=== PATIENT | male | born 1970 | race Caucasian/White ===

== ENCOUNTER → 2020-09-22 | Outpatient (CLI) | payer BC, OTHER ==
--- NOTE | 2020-09-22 21:00 | REPVR ---
PROCEDURE INFORMATION: Exam: MR Lumbar Spine Without Contrast. Exam date and time: 09/22/2020 7:28 PM Age: 50 years old Clinical indication: Low back pain; Additional info: Lbp TECHNIQUE: Imaging protocol: Multiplanar magnetic resonance images of the lumbar spine without intravenous contrast. COMPARISON: No relevant prior studies available. FINDINGS: Vertebrae: Tiny hemangioma within the L3 vertebral body. Normal vertebral body morphology. No fracture or subluxation. Spinal cord: Normal signal. No cord compression. The conus terminates at the level of the superior endplate of L2. L1-L2: Normal disc. Bilateral facet hypertrophy. No spinal stenosis. L2-L3: Normal disc. Bilateral facet hypertrophy. No spinal stenosis. L3-L4: Right-sided foraminal/far lateral disc protrusion. Correlate with possible right L3 radiculopathy. Bilateral facet hypertrophy and ligamentum flavum thickening. Mild spinal stenosis. L4-L5: Posterior broad-based disc bulge. Bilateral foraminal focal disc bulges, worse on the right with right foraminal annular fissure (sagittal STIR images 10, 11 and 12). Bilateral facet hypertrophy and ligamentum flavum thickening. Mild spinal stenosis. No focal disc protrusion or nerve root impingement. L5-S1: Posterior central focal disc bulge with annular fissure. No nerve root impingement. Mild bilateral facet hypertrophy. Soft tissues: Unremarkable. IMPRESSION: Degenerative spondylosis of the lumbar spine as described above. Electronically signed by: Long Ray On 09/22/2020 20:59:56 PM
== END ==
LOC: M RAD 17:29
PROVIDERS: ATTEND Physician Assistant
DX: M51.26 Other intervertebral disc displacement, lumbar region (principal); M47.816 Spondylosis without myelopathy or radiculopathy, lumbar region

== ENCOUNTER → 2020-12-18 | Outpatient (CLI) | payer BC, OTHER ==
--- NOTE | 2020-12-20 00:24 | ECWPNPC ---
PATIENT NAME: NELLI NICOLAS : 1970 GENDER: MALE VISIT DATE: 12/18/2020 DISCHARGE DATE: 12/18/20 1032 VISIT LOCKED DATE TIME: PHYSICIAN: PRISCA RAI RESOURCE: PRISCA RAI REASON FOR APPOINTMENT 1. BACK PAIN HISTORY OF PRESENT ILLNESS DEPRESSION SCREENING: PHQ-2 (2015 EDITION) LITTLE INTEREST OR PLEASURE IN DOING THINGS?NOT AT ALL FEELING DOWN, DEPRESSED, OR HOPELESS?NOT AT ALL TOTAL SCORE0 GENERAL: 50-YEAR-OLD GENTLEMAN REFERRED BY [facility] FOR EVALUATION OF CHRONIC LOW BACK PAIN. STATES PAIN BEGAN ACTUALLY 5 YEARS AGO WITHOUT PRECIPITATING EVENT. SAW PAIN CLINIC IN [place] AND HAD INJECTIONS WITH IMPROVEMENT SEVERAL YEARS AGO. PAIN BEGAN TO INCREASE OVER THE PAST YEAR. CONTINUES TO WORK ATTENDANCE SECRETARY. PAIN IS LOCATED ACROSS LOW BACK RIGHT GREATER THAN LEFT. PAIN IS AGGRAVATED WITH PROLONGED STANDING OR SITTING. REVIEWED MRI OF THE LS-SPINE AND DISCUSSED TREATMENT OPTIONS. RECENTLY ATTENDED PHYSICAL THERAPY WITH SOME IMPROVEMENT. DENIES BOWEL OR BLADDER INCONTINENCE. NO RECENT ILLNESS OR SUDDEN WEIGHT LOSS. -. FALL RISK SCREENING: SCREENING :NO FALLS REPORTED IN THE LAST YEAR PAIN SCREENING: PATIENT HAS A COMPLAINT OF ACUTE OR CHRONIC PAIN :YES LOCATION OF PAIN:LOW BACK INTENSITY OF PAIN (SCALE OF 1 TO 10):5 WHAT DOES YOUR PAIN FEEL LIKE:ACHING DURATION:PERIODIC PAIN IS INCREASED BY:ACTIVITIES PAIN IS DECREASED BY:SITTING NURSING NOTE: -. PAIN CENTER INTAKE QUESTIONS: DO YOU HAVE A HISTORY OF MRSA? :NO DO YOU TAKE A BLOOD THINNERS? :NO DO YOU HAVE ANY BLEEDING DISORDERS? :NO ANY NEW NUMBNESS OR WEAKNESS IN YOUR LEGS OR ARMS? :NO ANY PACEMAKER,DEFIBRILLATOR, OR DORSAL COLUMN STIMULATOR? :NO DO YOU HAVE ANY RASHES OR OPEN SORES? :NO ARE YOU ALLERGIC TO IV DYE? :NO ARE YOU DIABETIC? :NO ANY NEW PROBLEMS WITH YOUR MEDICATIONS? :NO HAVE YOU RECEIVED A VACCINE IN THE PAST 30 DAYS? :NO DO YOU PLAN TO RECEIVE A VACCINE IN THE NEXT 21 DAYS? :NO DO YOU NEED ANY PRESCRIPTION? :NO DO YOU TAKE ANY IMMUNOSUPPRESSIVE MEDICATIONS? :NO IS THERE A CHANCE YOU COULD BE ? :NO ARE YOU BREAST FEEDING? :NO CURRENT MEDICATIONS TAKING DULOXETINE HCL 60 MG CAPSULE DELAYED RELEASE PARTICLES 1 CAPSULE ORALLY ONCE A DAY TAKING ALLOPURINOL 300 MG TABLET 1 TABLET ORALLY ONCE A DAY TAKING MULTI FOR HIM - TABLET DIRECTED ORALLY DAILY TAKING LOSARTAN POTASSIUM 25 MG TABLET 1 TABLET ORALLY ONCE A DAY TAKING AMLODIPINE BESY-BENAZEPRIL HCL 5-10 MG CAPSULE DIRECTED ORALLY NOT-TAKING EUFLEXXA 20 MG/2ML SOLUTION PREFILLED SYRINGE 2 ML INTRA-ARTICULAR NOT-TAKING NORVASC 2.5MG TABLET 1 TAB ORALLY DAILY MEDICATION LIST REVIEWED AND RECONCILED WITH THE PATIENT PAST MEDICAL HISTORY ESSENTIAL HYPERTENSION CHRONIC BACK PAIN ALLERGIES N.K.D.A. SURGICAL HISTORY SINUS SURGERY FAMILY HISTORY FATHER: UNKNOWN MOTHER: UNKNOWN SOCIAL HISTORY GENERAL: TOBACCO USE ARE YOU A:NONSMOKER LATEX QUESTIONNAIRE LATEX ALLERGY : HAVE YOU EVER DEVELOPED ANY TYPE OF REACTION AFTER HANDLING LATEX PRODUCTS SUCH RUBBER GLOVES, CONDOMS, DIAPHRAGMS, BALLOONS, SOCKS, OR UNDERWEAR?NO LATEX ALLERGY : HAVE YOU EVER DEVELOPED ANY TYPE OF REACTION DURING OR AFTER DENTAL APPOINTMENT, VAGINAL/RECTAL EXAMINATION, SURGICAL PROCEDURE, OR ANY OTHER EXPOSURE?NO LATEX RISK : HAVE YOU EVER HAD ANY DIFFICULTY BREATHING OR HIVES AFTER EATING OR HANDLING ANY FRUITS, OR VEGETABLES; SUCH KIWI, BANANAS, STONE FRUITS, OR CHESTNUTSNO LATEX RISK : DO YOU HAVE A PREVIOUS PERSONAL HISTORY OF MORE THAN NINE SURGERIES, SPINA BIFIDA, OR REPEATED CATHERIZATIONS? NO LATEX RISK : ARE YOU FREQUENTLY EXPOSED TO LATEX PRODUCTS IN YOUR OCCUPATION?NO DATE ASKED : 12/18/2020 ALCOHOL SCREENING DID YOU HAVE A DRINK CONTAINING ALCOHOL IN THE PAST YEAR?YES POINTS0 INTERPRETATIONNEGATIVE RECREATIONAL DRUG USE DRUG USE?NO HOLINESS [id number] CHRISTIAN LANGUAGE LANGUAGES SPOKEN:BULGARIAN LEARNING BARRIERS / SPECIAL NEEDS BARRIERS TO LEARNING?NO HEARING IMPAIRED?NO VISION IMPAIRED?YES :CORRECTIVE LENSES COGNITIVELY IMPAIRED?NO READINESS TO LEARN?NO LEARNING PREFERENCES?YES :BOOKLETS, HANDOUTS, DEMONSTRATION/VERBAL INSTRUCTION LEARNING CAPABILITIES PRESENT?YES EMOTIONAL BARRIERS?NO SPECIAL DEVICES?NO FLARE WORKER NEEDED?NO HOSPITALIZATION/MAJOR DIAGNOSTIC PROCEDURE NO HOSPITALIZATION HISTORY. REVIEW OF SYSTEMS CONSTITUTIONAL: ANY RECENT FEVER NO . CHILLS NO . WEIGHT CHANGE OF UNKNOWN REASONS NO . GASTROENTEROLOGY: NEW UNEXPLAINABLE CHANGES IN BOWEL CONTROL NO . CONSTIPATION NO . GENITOURINARY: ANY NEW CHANGE IN BLADDER CONTROL? NO . NEUROLOGY: NEW ONSET DIZZINESS OR NEUROLOGICAL CHANGES NOT MENTIONED NO . NEW NUMBNESS OR PAIN PATTERNS NOT MENTIONED AND PERTINENT TO TODAY'S VISIT NO . CARDIOLOGY: NEW CHEST PRESSURE NO . NEW CHEST PAIN NO . RESPIRATORY: UNEXPLAINABLE COUGH NO . NEW SHORTNESS OF BREATH NO . VITAL SIGNS WT 395 LBS, HT 5'10, BMI 77.13 INDEX, BP 167/83 MM HG, HR 18 /MIN, TEMP 95.7 F, OXYGEN SAT % 95%, SAFE IN ENV? (Y/N) YEST.RENÉ SOARES. EXAMINATION GENERAL EXAMINATION: GENERALMORBIDLY OBESE . PSYCHAPPROPRIATE MOOD AND AFFECT . FACE:UNREMARKABLE. NECK:NO LYMPHADENOPATHY, SUPPLE. LUNGS:CLEAR TO AUSCULTATION BILATERALLY, NO WHEEZES, RHONCHI, RALES. HEART:NO MURMURS, REGULAR RATE AND RHYTHM. ABDOMEN:OBESE , PROTUBERANT . MUSCULOSKELETAL:NORMAL RANGE OF MOTION MUSCLE STRENGTH TESTING 5/5 BILATERAL TRIGGER POINTS: ELICITED WITH PALPATION OVER LUMBAR PARAVERTEBRAL MUSCLES R>L. PAIN INCREASES IN THIS AREA WITH RANGE OF JOINT MOTION OF THE SPINE.. LUMBAR:SPECIFIC POINT TENDERNESS NOTED OVER LUMBAR FACETS L3-4, L4-5 WITH FACET LOADING . NEUROLOGIC EXAM:NORMAL SENSATION TO LIGHT TOUCH LOWER EXTREMITIES BILATERALLY . DIAGNOSTIC TESTS REVIEWEDMRI L/S SPINE 08/2020 . ASSESSMENTS LUMBAR FACET ARTHROPATHY - M47.816 (PRIMARY) TREATMENT LUMBAR FACET ARTHROPATHY NOTES: BILATERAL LUMBAR THERAPEUTIC FACET BLOCK L3-4, L4-5. PROCEDURE CODES FA211 ESTABILISHED PATIENT [facility] FACILITY CHARGE DISPOSITION & COMMUNICATION FOLLOW UP POST PROCEDURE (REASON: BILATERAL LUMBAR THERAPEUTIC FACET BLOCK L3-4, L4-5) ELECTRONICALLY SIGNED BY LORIE CHAIDEZ ON 12/19/2020 AT 09:19 AM EST DISCLAIMER : THIS IS A VISIT SUMMARY EXTRACTED FROM THE [employer] CHART. IT IS NOT A COPY OF THE [employer] PROGRESS NOTE. JILL
== END ==
LOC: M PAIN 10:00
PROVIDERS: ATTEND Nurse Practitioner Family
DX: M47.816 Spondylosis without myelopathy or radiculopathy, lumbar region (principal); G89.29 Other chronic pain; E66.01 Morbid (severe) obesity due to excess calories; Z68.45 Body mass index [BMI] 70 or greater, adult; Z79.899 Other long term (current) drug therapy

== ENCOUNTER → 2020-12-27 | Outpatient (CLI) | payer BC, OTHER | LOC: M LABSMTC 09:32 | PROVIDERS: ATTEND Anesthesiology | DX: Z20.822 Contact with and (suspected) exposure to COVID-19 (principal) ==

== ENCOUNTER → 2021-01-01 | Outpatient (CLI) | payer BC, OTHER ==
[~2021-01-01] MED LIST: BUPIVACAINE HCL 0.25% 30ML VIAL As Ordered ONE; ISOVUE-M 300 61% 15ML VIAL As Ordered ONE; LIDOCAINE 1% SDV 30ML VIAL As Ordered ONE; NORCO, ANEXSIA 5/325MG TABLET (HYDROcodone/ACETAMINOPHEN) As Ordered ONE; TRIAMCINOLONE ACETONIDE SUSP 40 MG/ML VIAL (J3301) As Ordered ONE; diazePAM 2 MG TAB As Ordered ONE
--- NOTE | 2021-01-01 16:35 | REP ---
INDICATION: BIALTERAL LUMBAR THERAPEUTIC FACET BLOCK. COMPARISON: None. TECHNIQUE: Six views. 36.2 seconds of fluoroscopy time is reported. FINDINGS: A sequence of 6 last image hold fluoroscopically obtained spot radiograph(s) of the lumbar spine document(s) needle position(s) and contrast injection associated with injection procedure. IMPRESSION: Procedural imaging. <Electronically signed by Jason Koenig > 01/01/21 1387
--- NOTE | 2021-01-03 01:16 | ECWPNPC ---
PATIENT NAME: NELLI NICOLAS : 1970 GENDER: MALE VISIT DATE: 01/01/2021 DISCHARGE DATE: 01/01/21 1601 VISIT LOCKED DATE TIME: PHYSICIAN: KRISTY DWYER MD RESOURCE: KRISTY DWYER MD REASON FOR APPOINTMENT 1. BILATERAL THERAPEUTIC LUMBAR FACET BLOCK L3-L4, L4-L5 HISTORY OF PRESENT ILLNESS GENERAL: -. FALL RISK SCREENING: SCREENING :NO FALLS REPORTED IN THE LAST YEAR PAIN SCREENING: PATIENT HAS A COMPLAINT OF ACUTE OR CHRONIC PAIN :YES LOCATION OF PAIN:LOW BACK INTENSITY OF PAIN (SCALE OF 1 TO 10):7.5 WHAT DOES YOUR PAIN FEEL LIKE:ACHING, INTERMITTENT, SHARP, SORE DURATION:INTERMITTENT INTERMMITENT WITH ACTIVITIES PAIN IS INCREASED BY:ACTIVITIES PAIN IS DECREASED BY:USE OF PAIN MEDICATIONS NURSING NOTE: -. PAIN CENTER INTAKE QUESTIONS: DO YOU HAVE A HISTORY OF MRSA? :NO DO YOU TAKE A BLOOD THINNERS? :NO DO YOU HAVE ANY BLEEDING DISORDERS? :NO ANY NEW NUMBNESS OR WEAKNESS IN YOUR LEGS OR ARMS? :NO ANY PACEMAKER,DEFIBRILLATOR, OR DORSAL COLUMN STIMULATOR? :NO DO YOU HAVE ANY RASHES OR OPEN SORES? :NO ARE YOU ALLERGIC TO IV DYE? :NO ARE YOU DIABETIC? :NO ANY NEW PROBLEMS WITH YOUR MEDICATIONS? :NO HAVE YOU RECEIVED A VACCINE IN THE PAST 30 DAYS? :NO DO YOU PLAN TO RECEIVE A VACCINE IN THE NEXT 21 DAYS? :NO DO YOU TAKE ANY IMMUNOSUPPRESSIVE MEDICATIONS? :NO ANY HISTORY OF SEIZURES? :NO ANY HISTORY OF CARDIAC ISSUES OR EVENTS? :NO DO YOU HAVE SLEEP APNEA? :YES DO YOU WEAR A CPAP?YES ANY RECENT HEAD INJURY? :NO DO YOU HAVE ANY NEW INFECTIONS? :NO IS THERE A CHANCE YOU COULD BE ? :NO ARE YOU BREAST FEEDING? :NO WHEN DID YOU LAST EAT? : -12/31/2020 1700 WHEN DID YOU LAST DRINK? : -01/01/2021 @ 1000 WHAT DID YOU LAST DRINK? : -SIPS OF WATER WITH MEDICATION NAME OF PERSON DRIVING YOU HOME? : -GUILLERMO DO YOU HAVE ANY OTHER QUESTIONS OR CONCERNS? : -DENIES CURRENT MEDICATIONS TAKING DULOXETINE HCL 60 MG CAPSULE DELAYED RELEASE PARTICLES 1 CAPSULE ORALLY ONCE A DAY TAKING ALLOPURINOL 300 MG TABLET 1 TABLET ORALLY ONCE A DAY TAKING MULTI FOR HIM - TABLET DIRECTED ORALLY DAILY TAKING LOSARTAN POTASSIUM 25 MG TABLET 1 TABLET ORALLY ONCE A DAY, NOTES: 01/01/21 @ 1100 TAKING AMLODIPINE BESY-BENAZEPRIL HCL 5-10 MG CAPSULE DIRECTED ORALLY DAILY NOT-TAKING EUFLEXXA 20 MG/2ML SOLUTION PREFILLED SYRINGE 2 ML INTRA-ARTICULAR NOT-TAKING NORVASC 2.5MG TABLET 1 TAB ORALLY DAILY MEDICATION LIST REVIEWED AND RECONCILED WITH THE PATIENT PAST MEDICAL HISTORY ESSENTIAL HYPERTENSION CHRONIC BACK PAIN ALLERGIES N.K.D.A. SURGICAL HISTORY SINUS SURGERY FAMILY HISTORY FATHER: UNKNOWN MOTHER: UNKNOWN SOCIAL HISTORY GENERAL: TOBACCO USE ARE YOU A:NONSMOKER LATEX QUESTIONNAIRE LATEX ALLERGY : HAVE YOU EVER DEVELOPED ANY TYPE OF REACTION AFTER HANDLING LATEX PRODUCTS SUCH RUBBER GLOVES, CONDOMS, DIAPHRAGMS, BALLOONS, SOCKS, OR UNDERWEAR?NO LATEX ALLERGY : HAVE YOU EVER DEVELOPED ANY TYPE OF REACTION DURING OR AFTER DENTAL APPOINTMENT, VAGINAL/RECTAL EXAMINATION, SURGICAL PROCEDURE, OR ANY OTHER EXPOSURE?NO LATEX RISK : HAVE YOU EVER HAD ANY DIFFICULTY BREATHING OR HIVES AFTER EATING OR HANDLING ANY FRUITS, OR VEGETABLES; SUCH KIWI, BANANAS, STONE FRUITS, OR CHESTNUTSNO LATEX RISK : DO YOU HAVE A PREVIOUS PERSONAL HISTORY OF MORE THAN NINE SURGERIES, SPINA BIFIDA, OR REPEATED CATHERIZATIONS? NO LATEX RISK : ARE YOU FREQUENTLY EXPOSED TO LATEX PRODUCTS IN YOUR OCCUPATION?NO DATE ASKED : 12/29/2020 ALCOHOL SCREENING DID YOU HAVE A DRINK CONTAINING ALCOHOL IN THE PAST YEAR?YES POINTS0 INTERPRETATIONNEGATIVE RECREATIONAL DRUG USE DRUG USE?NO ORTHODOXY EEDDAYUL24 MUSLIM LANGUAGE LANGUAGES SPOKEN:EGYPTIAN LEARNING BARRIERS / SPECIAL NEEDS BARRIERS TO LEARNING?NO HEARING IMPAIRED?NO VISION IMPAIRED?YES :CORRECTIVE LENSES COGNITIVELY IMPAIRED?NO READINESS TO LEARN?NO LEARNING PREFERENCES?YES :BOOKLETS, HANDOUTS, DEMONSTRATION/VERBAL INSTRUCTION LEARNING CAPABILITIES PRESENT?YES EMOTIONAL BARRIERS?NO SPECIAL DEVICES?NO GLASS SANDER NEEDED?NO VITAL SIGNS WT 388.2 LBS, HT 5'10, BMI 75.81 INDEX, BP 145/74 MM HG, HR 74 /MIN, RR 18 /MIN, TEMP 97.5 F, OXYGEN SAT % 96%, SAFE IN ENV? (Y/N) YES, NA INITIALS AW 1347, REVIEWED BY: CARMELINA. EXAMINATION GENERAL EXAMINATION: THE PATIENT IS ALERT, ORIENTED TIMES THREE AND COOPERATIVE. LUNGS ARE CLEAR TO AUSCULTATION. HEART SHOWS REGULAR RHYTHM, NO MURMURS AND NO GALLOPS. ASSESSMENTS SPONDYLOSIS WITHOUT MYELOPATHY OR RADICULOPATHY, LUMBAR REGION - M47.816 (PRIMARY) TREATMENT SPONDYLOSIS WITHOUT MYELOPATHY OR RADICULOPATHY, LUMBAR REGION [facility] FACET BLOCK (PAIN)[id number] MEDICATION: NORCO TABLET 5MG/325MG ORALLY (HYDROCODONE/ACETAMINOPHEN)AYANA ALLENL 01/01/2021 01:58:40 PM - GIVE 2 TABS JAXON MODI 01/01/2021 2:14:04 PM > VERIFIED DAMION LEON 01/01/2021 2:15:28 PM > ADMINISTERED MEDICATION: VALIUM TAB 2MG ORALLY (DIAZEPAM)JAXON MODI 01/01/2021 2:14:17 PM > VERIFIED DAMION LEON 01/01/2021 2:15:52 PM > ADMINISTERED COMPLETION OF PROCEDURAL VISIT WHEN MEETS CRITERIADAMION LEON 01/01/2021 4:03:43 PM > CRITERIA MET OTHERS NOTES: PAT COMPLETED 12/29/20 M EMILIE JEREZ. PROCEDURES PAIN NURSING RECORD PROCEDURE IN ROOM 1507, PHYSICIAN IN ROOM 1518, START 1524, FINISH 1536, PHYSICIAN OUT OF ROOM 1537, OUT OF ROOM 1542, ECG NORMAL SINUS, PATIENT SHIELDED YES, SAFETY STRAP YES, PREP CHLOROPREP BY CARMELINA, DRESSING TEGADERM BY DR DWYER LOC: 1. ALERT, ORIENTED, DAMION LEON 01/01/2021 3:15:14 PM > RESP: 1. REGULAR, NO DYSPNEA, DAMION LEON 01/01/2021 3:15:24 PM > COLOR: 1. PINK, DAMION LEON 01/01/2021 3:15:28 PM > SKIN: 1. WARM, DRY, DAMION LEON 01/01/2021 3:15:33 PM > POSITION: 1. PRONE, DAMION LEON 01/01/2021 3:15:40 PM > VITALS: 74/94/173/86, 95%, DAMION LEON 01/01/2021 3:27:16 PM > , DAMION LEON 01/01/2021 3:30:30 PM > 72, 172/77,94% , DAMION LEON 01/01/2021 4:01:37 PM > 172/85, 71, 96% DURGA LEON RN COMPLETION OF PROCEDURE APPOINTMENT: POST PAIN 0, DRESSING SITE DRY AND INTACT, IV N/A, GAIT STEADY, TEACHING COMPLETED, PATIENT ACKNOWLEDGES UNDERSTANDING YES VERBALIZES UNDERSTANDING, PROCEDURE APPOINTMENT COMPLETED AT 1601 BY: Keegan LEON RN PN LUMBAR FACET BLOCK THERAPEUTIC PRE PROCEDURE DIAGNOSIS LUMBAR SPONDYLOSIS POST PROCEDURE DIAGNOSIS LUMBAR SPONDYLOSIS PROCEDURE BILATERAL L3-L4 AND BILATERAL L4-L5 LUMBAR FACET THERAPEUTIC BLOCK SURGEON DR. KRISTY DWYER SOLAR INSTALLATION FOREMAN NONE ANESTHESIA LOCAL PRE PROCEDURE NOTE THE PATIENT HAS A HISTORY OF CHRONIC LOW BACK PAIN. I EVALUATED THE PATIENT AND REVIEWED THE CHART. I WENT OVER THE RISKS, ALTERNATIVES, AND BENEFITS ASSOCIATED WITH THIS PROCEDURE. THE PATIENT WOULD LIKE TO PROCEED AND GIVES CONSENT TO PERFORM THE PROCEDURE. THE PATIENT DENIES UNEXPLAINABLE WEIGHT LOSS, FEVER, CHILLS, OR NEW CHANGES IN URINARY OR BOWEL CONTROL. THE PATIENT IS COVID-19 NEGATIVE DESCRIPTION OF PROCEDURE THE PATIENT WAS BROUGHT TO THE PROCEDURE ROOM AND PLACED IN THE PRONE POSITION. THE LUMBOSACRAL AREA WAS CLEANED WITH CHLORAPREP SOLUTION AND DRAPED ASEPTICALLY. THE PROCEDURE WAS DONE UNDER STERILE CONDITIONS. A TIMEOUT WAS PERFORMED WHERE THE CONSENTED SITE WAS VERIFIED WITH EVERYONE IN THE ROOM. UNDER FLUOROSCOPIC GUIDANCE, THE TARGET POINT WAS SELECTED AT THE RIGHT AND LEFT L3-L4 AND RIGHT AND LEFT L4-L5 FACET JOINTS. TARGET POINT WAS SELECTED AFTER LATERAL ROTATION AND TILT OF THE MAGNIFIER OF THE C-ARM. I CONFIRMED AGAIN THE SITE OF THE TARGET. LIDOCAINE 0.5% WAS USED TO NUMB THE SKIN AND THE SUBCUTANEOUS TISSUE BELOW IT. SPINAL NEEDLES, 22-GAUGE, WERE ADVANCED UNDER FLUOROSCOPIC GUIDANCE AND FOLLOWING PATIENT FEEDBACK UNTIL THE TARGETS WERE TOUCHED. THE POSITION OF THE NEEDLES WAS VERIFIED WITH AP AND LATERAL VIEWS. AFTER PROPER POSITION OF THE NEEDLES WAS ACHIEVED, ISOVUE-M DYE 30%, 0.1 ML, WAS INJECTED SHOWING ADEQUATE SPREAD OF THE DYE. KENALOG 10 MG WAS INJECTED AT EACH SITE. THEN, A SOLUTION OF 1.0 ML OF BUPIVACAINE 0.125% OF WAS USED TO FLUSH EACH SITE. THE MEDICATION WAS VERIFIED WITH THE NURSE. THERE WAS NO EVIDENCE OF BLOOD, PARESTHESIA OR CEREBROSPINAL FLUID DURING THE PROCEDURE. THE PATIENT WAS SENT TO THE RECOVERY ROOM. THE PATIENT WAS MOVING THE EXTREMITIES AND DOING WELL. THERE WERE NO COMPLICATIONS DURING THE PROCEDURE. ESTIMATED BLOOD LOSS WAS LESS THAN 5 ML. FLUOROSCOPY TIME WAS 36 SECONDS POST PROCEDURE NOTE DEPENDING ON THE RESULTS, CONSIDER DOING FACET BLOCKS AT L4-L5, L5-S1. THE PATIENT WILL BE SEEN IN A FOLLOW UP IN THE NEXT FEW WEEKS. I AM LOOKING FOR LONG LASTING RELIEF FOR THE PATIENT WITH THIS INTERVENTION. INSTRUCTIONS WERE GIVEN, QUESTIONS WERE ANSWERED, AND THE PATIENT EXPRESSED UNDERSTANDING AND AGREES WITH THE PLAN. I, KAMI ALLEN, DOCUMENTED THE ABOVE INFORMATION ACTING A SCRIBE FOR DR. DWYER. I HAVE REVIEWED THE ABOVE DOCUMENT, WRITTEN BY KAMI ALLEN, HOSPITAL HOUSEKEEPER, AND I VERIFY THAT IT IS ACCURATE PROCEDURE CODES 47968 INJ PARAVERT F JNT L/S 1 LEV, MODIFIERS: 50 [id number] INJ PARAVERT F JNT L/S 2 LEV, MODIFIERS: 50 DISPOSITION & COMMUNICATION FOLLOW UP FOLLOW UP WITH KNITTING SUPERVISOR (REASON: POST BILATERAL THERAPEUTIC LUMBAR FACET BLOCK L3-L4, L4-L5) ELECTRONICALLY SIGNED BY KRISTY DWYER MD, ON 01/02/2021 AT 12:47 PM EST DISCLAIMER : THIS IS A VISIT SUMMARY EXTRACTED FROM THE [employer] CHART. IT IS NOT A COPY OF THE [employer] PROGRESS NOTE. JILL
== END ==
LOC: M PAIN 14:30
PROVIDERS: ATTEND Anesthesiology
DX: M47.816 Spondylosis without myelopathy or radiculopathy, lumbar region (principal); G47.30 Sleep apnea, unspecified; E66.01 Morbid (severe) obesity due to excess calories; Z68.45 Body mass index [BMI] 70 or greater, adult; Z79.899 Other long term (current) drug therapy
CPT/HCPCS: 64493; 64494; J3301; Q9967

== ENCOUNTER → 2021-01-25 | Outpatient (CLI) | payer BC, OTHER ==
--- NOTE | 2021-01-30 01:46 | ECWPNPC ---
PATIENT NAME: NELLI NICOLAS : 1970 GENDER: MALE VISIT DATE: 01/25/2021 DISCHARGE DATE: 01/25/21 1019 VISIT LOCKED DATE TIME: PHYSICIAN: PRISCA RAI RESOURCE: PRISCA RAI REASON FOR APPOINTMENT 1. POST BILATERAL LUMBAR THERAPEUTIC FACET BLOCK L3-4, L4-5 HISTORY OF PRESENT ILLNESS GENERAL: HERE FOR POST PROCEDURE FOLLOW-UP. HAD BILATERAL LUMBAR FACET BLOCK THERAPEUTIC A FEW WEEKS AGO. CONTINUES TO REPORT IMPROVEMENT IN LOW BACK PAIN THAT CONTINUES TODAY.-. FALL RISK SCREENING: SCREENING :ONE FALL WITHOUT INJURY IN THE PAST YEAR PAIN SCREENING: PATIENT HAS A COMPLAINT OF ACUTE OR CHRONIC PAIN :YES LOCATION OF PAIN:LOW BACK INTENSITY OF PAIN (SCALE OF 1 TO 10):4 WHAT DOES YOUR PAIN FEEL LIKE:TENDER, SORE FALL DOWN 01/25/2021 DURATION:CONTINOUS, CONSTANT, ALL DAY PAIN IS INCREASED BY:ACTIVITIES PAIN IS DECREASED BY:USE OF PAIN MEDICATIONS, OTHERS SITTING DOWN NURSING NOTE: -. PAIN CENTER INTAKE QUESTIONS: DO YOU HAVE A HISTORY OF MRSA? :NO DO YOU TAKE A BLOOD THINNERS? :NO DO YOU HAVE ANY BLEEDING DISORDERS? :NO ANY NEW NUMBNESS OR WEAKNESS IN YOUR LEGS OR ARMS? :NO ANY PACEMAKER,DEFIBRILLATOR, OR DORSAL COLUMN STIMULATOR? :NO DO YOU HAVE ANY RASHES OR OPEN SORES? :NO ARE YOU ALLERGIC TO IV DYE? :NO ARE YOU DIABETIC? :NO ANY NEW PROBLEMS WITH YOUR MEDICATIONS? :NO HAVE YOU RECEIVED A VACCINE IN THE PAST 30 DAYS? :NO DO YOU PLAN TO RECEIVE A VACCINE IN THE NEXT 21 DAYS? :NO DO YOU NEED ANY PRESCRIPTION? :NO DO YOU TAKE ANY IMMUNOSUPPRESSIVE MEDICATIONS? :NO IS THERE A CHANCE YOU COULD BE ? :NO ARE YOU BREAST FEEDING? :NO CURRENT MEDICATIONS TAKING DULOXETINE HCL 60 MG CAPSULE DELAYED RELEASE PARTICLES 1 CAPSULE ORALLY ONCE A DAY, NOTES: NEEDED TAKING ALLOPURINOL 300 MG TABLET 1 TABLET ORALLY ONCE A DAY TAKING MULTI FOR HIM - TABLET DIRECTED ORALLY DAILY TAKING LOSARTAN POTASSIUM 25 MG TABLET 1 TABLET ORALLY ONCE A DAY TAKING AMLODIPINE BESY-BENAZEPRIL HCL 5-10 MG CAPSULE DIRECTED ORALLY DAILY NOT-TAKING EUFLEXXA 20 MG/2ML SOLUTION PREFILLED SYRINGE 2 ML INTRA-ARTICULAR NOT-TAKING NORVASC 2.5MG TABLET 1 TAB ORALLY DAILY MEDICATION LIST REVIEWED AND RECONCILED WITH THE PATIENT PAST MEDICAL HISTORY ESSENTIAL HYPERTENSION CHRONIC BACK PAIN ALLERGIES N.K.D.A. SOCIAL HISTORY GENERAL: TOBACCO USE ARE YOU A:NONSMOKER LATEX QUESTIONNAIRE LATEX ALLERGY : HAVE YOU EVER DEVELOPED ANY TYPE OF REACTION AFTER HANDLING LATEX PRODUCTS SUCH RUBBER GLOVES, CONDOMS, DIAPHRAGMS, BALLOONS, SOCKS, OR UNDERWEAR?NO LATEX ALLERGY : HAVE YOU EVER DEVELOPED ANY TYPE OF REACTION DURING OR AFTER DENTAL APPOINTMENT, VAGINAL/RECTAL EXAMINATION, SURGICAL PROCEDURE, OR ANY OTHER EXPOSURE?NO LATEX RISK : HAVE YOU EVER HAD ANY DIFFICULTY BREATHING OR HIVES AFTER EATING OR HANDLING ANY FRUITS, OR VEGETABLES; SUCH KIWI, BANANAS, STONE FRUITS, OR CHESTNUTSNO LATEX RISK : DO YOU HAVE A PREVIOUS PERSONAL HISTORY OF MORE THAN NINE SURGERIES, SPINA BIFIDA, OR REPEATED CATHERIZATIONS? NO LATEX RISK : ARE YOU FREQUENTLY EXPOSED TO LATEX PRODUCTS IN YOUR OCCUPATION?NO DATE ASKED : 01/25/2021 ALCOHOL USE: NO. ALCOHOL SCREENING DID YOU HAVE A DRINK CONTAINING ALCOHOL IN THE PAST YEAR?YES POINTS0 INTERPRETATIONNEGATIVE RECREATIONAL DRUG USE DRUG USE?NO TEMPLE [id number] JEWISH LANGUAGE LANGUAGES SPOKEN:TURKMEN LEARNING BARRIERS / SPECIAL NEEDS CHANGE FROM LAST VISIT?NO BARRIERS TO LEARNING?NO HEARING IMPAIRED?NO VISION IMPAIRED?YES :CORRECTIVE LENSES COGNITIVELY IMPAIRED?NO READINESS TO LEARN?NO LEARNING PREFERENCES?YES :BOOKLETS, HANDOUTS, DEMONSTRATION/VERBAL INSTRUCTION LEARNING CAPABILITIES PRESENT?YES EMOTIONAL BARRIERS?NO SPECIAL DEVICES?NO GRAIN PROCESSOR NEEDED?NO REVIEW OF SYSTEMS CONSTITUTIONAL: ANY RECENT FEVER NO . CHILLS NO . WEIGHT CHANGE OF UNKNOWN REASONS NO . GASTROENTEROLOGY: NEW UNEXPLAINABLE CHANGES IN BOWEL CONTROL NO . CONSTIPATION NO . GENITOURINARY: ANY NEW CHANGE IN BLADDER CONTROL? NO . NEUROLOGY: NEW ONSET DIZZINESS OR NEUROLOGICAL CHANGES NOT MENTIONED NO . NEW NUMBNESS OR PAIN PATTERNS NOT MENTIONED AND PERTINENT TO TODAY'S VISIT NO . CARDIOLOGY: NEW CHEST PRESSURE NO . PATIENT DENIES NO . RESPIRATORY: UNEXPLAINABLE COUGH NO . NEW SHORTNESS OF BREATH NO . VITAL SIGNS WT 393 LBS, HT 5'10, BMI 76.74 INDEX, BP 176/91 MM HG, HR 61 /MIN, RR 20 /MIN, TEMP 97.7 F, OXYGEN SAT % 96%, SAFE IN ENV? (Y/N) YES, NA INITIALS PR 10:05T.RENÉ SOARES. EXAMINATION GENERAL EXAMINATION: GENERALAWAKE,ALERT ,PLEASANT . PSYCHAFFECT NORMAL . LUNGS:LUNG WATERS ARE CLEAR TO AUSCULTATION BILATERALLY. GOOD MOVEMENT OF AIR . HEART:S1, S2 IN A REGULAR RATE AND RHYTHM. NO SIGNIFICANT MURMURS, RUBS OR GALLOPS NOTED . ASSESSMENTS OTHER CHRONIC PAIN - G89.29 (PRIMARY) SPONDYLOSIS WITHOUT MYELOPATHY OR RADICULOPATHY, LUMBAR REGION - M47.816 TREATMENT OTHER CHRONIC PAIN PAIN PROCEDURE LOGDATE OF PROCEDURE1PROCEDURE:BILATERAL THERAPEUTIC LUMBAR BLOCK L3-L4,L4-A9GKMEZY OF PRE SEDATEVALIUM 2MG, NORCO 5/325MGRESULT:IMPROVEMENT IN PAIN CONTINUES TODAY PROCEDURE CODES [id number] ESTABILISHED PATIENT [facility] FACILITY CHARGE DISPOSITION & COMMUNICATION FOLLOW UP 3 MONTHS (REASON: LBP/RESPONDS WELL TO LFBT) ELECTRONICALLY SIGNED BY LORIE CHAIDEZ ON 01/29/2021 AT 01:34 PM EST DISCLAIMER : THIS IS A VISIT SUMMARY EXTRACTED FROM THE [employer] CHART. IT IS NOT A COPY OF THE [employer] PROGRESS NOTE. JILL
== END ==
LOC: M PAIN 09:45
PROVIDERS: ATTEND Nurse Practitioner Family
DX: M47.816 Spondylosis without myelopathy or radiculopathy, lumbar region (principal); G89.29 Other chronic pain; E66.01 Morbid (severe) obesity due to excess calories; Z68.45 Body mass index [BMI] 70 or greater, adult; Z79.899 Other long term (current) drug therapy

== ENCOUNTER → 2021-04-23 | Outpatient (CLI) | payer BC, OTHER ==
--- NOTE | 2021-04-26 04:53 | ECWPNPC ---
PATIENT NAME: NELLI NICOLAS : 1970 GENDER: MALE VISIT DATE: 04/23/2021 DISCHARGE DATE: 04/23/21930 VISIT LOCKED DATE TIME: PHYSICIAN: PRISCA RAI RESOURCE: PRISCA RAI REASON FOR APPOINTMENT 1. LBP/RESPONDS WELL TO LFBT HISTORY OF PRESENT ILLNESS GENERAL: HERE FOR FOLLOW-UP OF CHRONIC LOW BACK PAIN. PAIN HAS BEGUN TO RETURN TO BASELINE. REPORTING AGGRAVATION WITH DOING ANY ACTIVITIES I.E. PROLONGED STANDING OR SHOVELING. PAIN IS LOCATED ACROSS LOWER BACK. REPORTING INTERMITTENT PAIN IN HIS LEFT THIGH. REVIEWED MRI OF THE LS-SPINE. DISCUSSED TREATMENT OPTIONS TO INCLUDE DIAGNOSTIC LUMBAR FACET BLOCK AND RADIOFREQUENCY. -. FALL RISK SCREENING: SCREENING : NO FALLS REPORTED IN THE LAST YEAR. PAIN SCREENING: PATIENT HAS A COMPLAINT OF ACUTE OR CHRONIC PAIN :YES LOCATION OF PAIN:LOW BACK INTENSITY OF PAIN (SCALE OF 1 TO 10):0 WHAT DOES YOUR PAIN FEEL LIKE:OTHER NOT FEELING ANY PAIN DURATION:ONLY WITH SPECIFIC ACTIVITIES PAIN IS INCREASED BY:ACTIVITIES, PROLONGED STANDING PAIN IS DECREASED BY:OTHERS STRETCHING NURSING NOTE: -. PAIN CENTER INTAKE QUESTIONS: DO YOU HAVE A HISTORY OF MRSA? :NO DO YOU TAKE A BLOOD THINNERS? :NO DO YOU HAVE ANY BLEEDING DISORDERS? :NO ANY NEW NUMBNESS OR WEAKNESS IN YOUR LEGS OR ARMS? :YES LEFT LEG ANY PACEMAKER,DEFIBRILLATOR, OR DORSAL COLUMN STIMULATOR? :NO DO YOU HAVE ANY RASHES OR OPEN SORES? :NO ARE YOU ALLERGIC TO IV DYE? :NO ARE YOU DIABETIC? :NO ANY NEW PROBLEMS WITH YOUR MEDICATIONS? :NO HAVE YOU RECEIVED A VACCINE IN THE PAST 30 DAYS? :NO DO YOU PLAN TO RECEIVE A VACCINE IN THE NEXT 21 DAYS? :NO DO YOU NEED ANY PRESCRIPTION? :NO DO YOU TAKE ANY IMMUNOSUPPRESSIVE MEDICATIONS? :NO IS THERE A CHANCE YOU COULD BE ? :NO ARE YOU BREAST FEEDING? :NO CURRENT MEDICATIONS TAKING DULOXETINE HCL 60 MG CAPSULE DELAYED RELEASE PARTICLES 1 CAPSULE ORALLY ONCE A DAY, NOTES: NEEDED TAKING ALLOPURINOL 300 MG TABLET 1 TABLET ORALLY ONCE A DAY TAKING MULTI FOR HIM - TABLET DIRECTED ORALLY DAILY TAKING LOSARTAN POTASSIUM 25 MG TABLET 1 TABLET ORALLY ONCE A DAY TAKING AMLODIPINE BESY-BENAZEPRIL HCL 5-10 MG CAPSULE DIRECTED ORALLY DAILY TAKING ALEVE 220 MG TABLET 1 TABLET WITH FOOD OR MILK NEEDED ORALLY EVERY 12 HRS NOT-TAKING EUFLEXXA 20 MG/2ML SOLUTION PREFILLED SYRINGE 2 ML INTRA-ARTICULAR NOT-TAKING NORVASC 2.5MG TABLET 1 TAB ORALLY DAILY MEDICATION LIST REVIEWED AND RECONCILED WITH THE PATIENT PAST MEDICAL HISTORY ESSENTIAL HYPERTENSION CHRONIC BACK PAIN ALLERGIES N.K.D.A. SOCIAL HISTORY GENERAL: TOBACCO USE ARE YOU A:NONSMOKER LATEX QUESTIONNAIRE LATEX ALLERGY : HAVE YOU EVER DEVELOPED ANY TYPE OF REACTION AFTER HANDLING LATEX PRODUCTS SUCH RUBBER GLOVES, CONDOMS, DIAPHRAGMS, BALLOONS, SOCKS, OR UNDERWEAR?NO LATEX ALLERGY : HAVE YOU EVER DEVELOPED ANY TYPE OF REACTION DURING OR AFTER DENTAL APPOINTMENT, VAGINAL/RECTAL EXAMINATION, SURGICAL PROCEDURE, OR ANY OTHER EXPOSURE?NO LATEX RISK : HAVE YOU EVER HAD ANY DIFFICULTY BREATHING OR HIVES AFTER EATING OR HANDLING ANY FRUITS, OR VEGETABLES; SUCH KIWI, BANANAS, STONE FRUITS, OR CHESTNUTSNO LATEX RISK : DO YOU HAVE A PREVIOUS PERSONAL HISTORY OF MORE THAN NINE SURGERIES, SPINA BIFIDA, OR REPEATED CATHERIZATIONS? NO LATEX RISK : ARE YOU FREQUENTLY EXPOSED TO LATEX PRODUCTS IN YOUR OCCUPATION?NO DATE ASKED : 04/23/2021 ALCOHOL USE: YES, OCCASIONALLY. ALCOHOL SCREENING DID YOU HAVE A DRINK CONTAINING ALCOHOL IN THE PAST YEAR?YES POINTS0 INTERPRETATIONNEGATIVE RECREATIONAL DRUG USE DRUG USE?NO HOLINESS [id number] CONFUCIANISM LANGUAGE LANGUAGES SPOKEN:ROMANIAN LEARNING BARRIERS / SPECIAL NEEDS CHANGE FROM LAST VISIT?NO BARRIERS TO LEARNING?NO HEARING IMPAIRED?NO VISION IMPAIRED?YES :CORRECTIVE LENSES COGNITIVELY IMPAIRED?NO READINESS TO LEARN?NO LEARNING PREFERENCES?YES :BOOKLETS, HANDOUTS, DEMONSTRATION/VERBAL INSTRUCTION LEARNING CAPABILITIES PRESENT?YES EMOTIONAL BARRIERS?NO SPECIAL DEVICES?NO UTILITY AIDE NEEDED?NO REVIEW OF SYSTEMS CONSTITUTIONAL: ANY RECENT FEVER NO . CHILLS NO . WEIGHT CHANGE OF UNKNOWN REASONS NO . GASTROENTEROLOGY: NEW UNEXPLAINABLE CHANGES IN BOWEL CONTROL NO . CONSTIPATION NO . GENITOURINARY: ANY NEW CHANGE IN BLADDER CONTROL? NO . NEUROLOGY: NEW ONSET DIZZINESS OR NEUROLOGICAL CHANGES NOT MENTIONED NO . NEW NUMBNESS OR PAIN PATTERNS NOT MENTIONED AND PERTINENT TO TODAY'S VISIT NO . CARDIOLOGY: NEW CHEST PRESSURE NO . PATIENT DENIES NO . RESPIRATORY: UNEXPLAINABLE COUGH NO . NEW SHORTNESS OF BREATH NO . VITAL SIGNS WT 405.2 LBS, HT 5'10, BMI 79.13 INDEX, BP 171/79 MM HG, HR 78 /MIN, RR 18 /MIN, TEMP 97.4 F, OXYGEN SAT % 94%, SAFE IN ENV? (Y/N) YES, NA INITIALS AW 0831T.RENÉ SOARES, PATIENT STATED THAT HE JUST TOOK HIS MEDICATION A COUPLE MIN AGO. EXAMINATION GENERAL EXAMINATION: GENERALMORBIDLY OBESE . PSYCHAPPROPRIATE MOOD AND AFFECT . FACE:UNREMARKABLE. NECK:NO LYMPHADENOPATHY, SUPPLE. LUNGS:CLEAR TO AUSCULTATION BILATERALLY, NO WHEEZES, RHONCHI, RALES. HEART:NO MURMURS, REGULAR RATE AND RHYTHM. ABDOMEN:OBESE , PROTUBERANT . MUSCULOSKELETAL:NORMAL RANGE OF MOTION MUSCLE STRENGTH TESTING 5/5 BILATERAL TRIGGER POINTS: ELICITED WITH PALPATION OVER LUMBAR PARAVERTEBRAL MUSCLES R>L. PAIN INCREASES IN THIS AREA WITH RANGE OF JOINT MOTION OF THE SPINE.. LUMBAR:SPECIFIC POINT TENDERNESS NOTED OVER LUMBAR FACETS L3-4, L4-5 WITH FACET LOADING . NEUROLOGIC EXAM:NORMAL SENSATION TO LIGHT TOUCH LOWER EXTREMITIES BILATERALLY . DIAGNOSTIC TESTS REVIEWEDMRI L/S SPINE 08/2020 . ASSESSMENTS SPONDYLOSIS WITHOUT MYELOPATHY OR RADICULOPATHY, LUMBAR REGION - M47.816 (PRIMARY) TREATMENT SPONDYLOSIS WITHOUT MYELOPATHY OR RADICULOPATHY, LUMBAR REGION NOTES: BILATERAL DIAGNOSTIC LUMBAR FACET BLOCK L3-4,L4-5 REVIEWED PRE PROCEDURE TEACHING INFORMATION, PATIENT VERBALIZED UNDERSTANDING ANNA SOARES. PROCEDURE CODES FA211 ESTABILISHED PATIENT [facility] FACILITY CHARGE DISPOSITION & COMMUNICATION FOLLOW UP 1 WK POST (REASON: BILATERAL DIAGNOSTIC LUMBAR FACET BLOCK L3-4,L4-5) ELECTRONICALLY SIGNED BY LORIE CHAIDEZ ON 04/25/2021 AT 09:16 AM EDT DISCLAIMER : THIS IS A VISIT SUMMARY EXTRACTED FROM THE [employer] CHART. IT IS NOT A COPY OF THE [employer] PROGRESS NOTE. CARRILLOD
== END ==
LOC: M PAIN 09:00
PROVIDERS: ATTEND Nurse Practitioner Family
DX: M47.816 Spondylosis without myelopathy or radiculopathy, lumbar region (principal); I10 Essential (primary) hypertension; Z79.899 Other long term (current) drug therapy

== ENCOUNTER → 2021-06-06 | Outpatient (CLI) | payer BC, OTHER | LOC: M LABSMTC 09:42 | PROVIDERS: ATTEND Anesthesiology | DX: Z01.812 Encounter for preprocedural laboratory examination (principal); Z20.828 Contact with and (suspected) exposure to other viral communicable diseases ==

== ENCOUNTER → 2021-06-11 | Outpatient (CLI) | payer BC, OTHER ==
[~2021-06-11] MED LIST changes: -NORCO, ANEXSIA 5/325MG TABLET (HYDROcodone/ACETAMINOPHEN) As Ordered ONE; -TRIAMCINOLONE ACETONIDE SUSP 40 MG/ML VIAL (J3301) As Ordered ONE; -diazePAM 2 MG TAB As Ordered ONE
--- NOTE | 2021-06-11 14:06 | REP ---
INDICATION: BILATERAL DIAGNOSTIC LUMBAR FACET BLOCK #1. COMPARISON: None. TECHNIQUE: Two views. Thirty-one seconds of fluoroscopy time is reported. FINDINGS: A sequence of 2 last image hold fluoroscopically obtained spot radiograph(s) of the lumbar spine document(s) needle position(s) and contrast injection associated with injection procedure. IMPRESSION: Procedural imaging. <Electronically signed by Jason Koenig > 06/11/21 2121
--- NOTE | 2021-06-16 06:59 | ECWPNPC ---
PATIENT NAME: NELLI NICOLAS : 1970 GENDER: MALE VISIT DATE: 06/11/2021 DISCHARGE DATE: 06/11/21 1022 VISIT LOCKED DATE TIME: PHYSICIAN: KRISTY DWYER MD RESOURCE: KRISTY DWYER MD REASON FOR APPOINTMENT 1. BILATERAL DIAGNOSTIC LUMBAR FACET BLOCK #1 L3-L4,L4-L5 HISTORY OF PRESENT ILLNESS FALL RISK SCREENING: SCREENING : NO FALLS REPORTED IN THE LAST YEAR. PAIN SCREENING: PATIENT HAS A COMPLAINT OF ACUTE OR CHRONIC PAIN :YES LOCATION OF PAIN:LOW BACK INTENSITY OF PAIN (SCALE OF 1 TO 10):8 AT REST 4/10 WHAT DOES YOUR PAIN FEEL LIKE:OTHER DULL, ACHE. DURATION:CONTINOUS PAIN IS INCREASED BY:ACTIVITIES, PROLONGED STANDING PAIN IS DECREASED BY:USE OF PAIN MEDICATIONS, OTHERS SITTING DOWN PLAN/GOALS/TREATMENT/INTERVENTION/FOLLOW UP:SEE PLAN NURSING NOTE: -. PAIN CENTER INTAKE QUESTIONS: DO YOU HAVE A HISTORY OF MRSA? :NO DO YOU TAKE A BLOOD THINNERS? :NO DO YOU HAVE ANY BLEEDING DISORDERS? :NO ANY NEW NUMBNESS OR WEAKNESS IN YOUR LEGS OR ARMS? :NO ANY PACEMAKER,DEFIBRILLATOR, OR DORSAL COLUMN STIMULATOR? :NO DO YOU HAVE ANY RASHES OR OPEN SORES? :NO ARE YOU ALLERGIC TO IV DYE? :NO ARE YOU DIABETIC? :NO ANY NEW PROBLEMS WITH YOUR MEDICATIONS? :NO HAVE YOU RECEIVED A VACCINE IN THE PAST 30 DAYS? :NO DO YOU PLAN TO RECEIVE A VACCINE IN THE NEXT 21 DAYS? :NO DO YOU TAKE ANY IMMUNOSUPPRESSIVE MEDICATIONS? :YES ALLOPURINOL ANY HISTORY OF SEIZURES? :NO ANY HISTORY OF CARDIAC ISSUES OR EVENTS? :NO DO YOU HAVE ANY KIDNEY OR LIVER DISEASE? :NO DO YOU HAVE SLEEP APNEA? :YES DO YOU WEAR A CPAP?YES ANY RECENT HEAD INJURY? :NO DO YOU HAVE ANY NEW INFECTIONS? :NO IS THERE A CHANCE YOU COULD BE ? :NO ARE YOU BREAST FEEDING? :NO WHEN DID YOU LAST EAT? : 06/10/2021 1800 WHEN DID YOU LAST DRINK? : 06/10/2021 0630 WHAT DID YOU LAST DRINK? : WATER NAME OF PERSON DRIVING YOU HOME? : GF DO YOU HAVE ANY OTHER QUESTIONS OR CONCERNS? : NO CURRENT MEDICATIONS TAKING DULOXETINE HCL 60 MG CAPSULE DELAYED RELEASE PARTICLES 1 CAPSULE ORALLY ONCE A DAY TAKING ALLOPURINOL 300 MG TABLET 1 TABLET ORALLY ONCE A DAY TAKING MULTI FOR HIM - TABLET DIRECTED ORALLY DAILY TAKING LOSARTAN POTASSIUM 25 MG TABLET 1 TABLET ORALLY ONCE A DAY, NOTES: 06/10/2021 0630 TAKING AMLODIPINE BESY-BENAZEPRIL HCL 5-10 MG CAPSULE DIRECTED ORALLY DAILY, NOTES: 06/10/2021 0630 TAKING ALEVE 220 MG TABLET 1 TABLET WITH FOOD OR MILK NEEDED ORALLY EVERY 12 HRS, NOTES: 2-3 DAYS NOT-TAKING EUFLEXXA 20 MG/2ML SOLUTION PREFILLED SYRINGE 2 ML INTRA-ARTICULAR NOT-TAKING NORVASC 2.5MG TABLET 1 TAB ORALLY DAILY MEDICATION LIST REVIEWED AND RECONCILED WITH THE PATIENT PAST MEDICAL HISTORY ESSENTIAL HYPERTENSION CHRONIC BACK PAIN ALLERGIES N.K.D.A. SOCIAL HISTORY GENERAL: TOBACCO USE ARE YOU A:NONSMOKER LATEX QUESTIONNAIRE LATEX ALLERGY : HAVE YOU EVER DEVELOPED ANY TYPE OF REACTION AFTER HANDLING LATEX PRODUCTS SUCH RUBBER GLOVES, CONDOMS, DIAPHRAGMS, BALLOONS, SOCKS, OR UNDERWEAR?NO LATEX ALLERGY : HAVE YOU EVER DEVELOPED ANY TYPE OF REACTION DURING OR AFTER DENTAL APPOINTMENT, VAGINAL/RECTAL EXAMINATION, SURGICAL PROCEDURE, OR ANY OTHER EXPOSURE?NO LATEX RISK : HAVE YOU EVER HAD ANY DIFFICULTY BREATHING OR HIVES AFTER EATING OR HANDLING ANY FRUITS, OR VEGETABLES; SUCH KIWI, BANANAS, STONE FRUITS, OR CHESTNUTSNO LATEX RISK : DO YOU HAVE A PREVIOUS PERSONAL HISTORY OF MORE THAN NINE SURGERIES, SPINA BIFIDA, OR REPEATED CATHERIZATIONS? NO LATEX RISK : ARE YOU FREQUENTLY EXPOSED TO LATEX PRODUCTS IN YOUR OCCUPATION?NO DATE ASKED : 06/08/2021 ALCOHOL USE: YES, OCCASIONALLY. ALCOHOL SCREENING DID YOU HAVE A DRINK CONTAINING ALCOHOL IN THE PAST YEAR?YES POINTS0 INTERPRETATIONNEGATIVE RECREATIONAL DRUG USE DRUG USE?NO SABIANIST [id number] SYNAGOGUE LANGUAGE LANGUAGES SPOKEN:[place]EN[place]IC LEARNING BARRIERS / SPECIAL NEEDS CHANGE FROM LAST VISIT?NO BARRIERS TO LEARNING?NO HEARING IMPAIRED?NO VISION IMPAIRED?YES COGNITIVELY IMPAIRED?NO :CORRECTIVE LENSES READINESS TO LEARN?NO LEARNING PREFERENCES?YES :BOOKLETS, HANDOUTS, DEMONSTRATION/VERBAL INSTRUCTION LEARNING CAPABILITIES PRESENT?YES EMOTIONAL BARRIERS?NO SPECIAL DEVICES?NO CHILD CARE CENTER ADMINISTRATOR NEEDED?NO VITAL SIGNS WT 407.2 LBS, HT 5'10, BMI 79.52 INDEX, BP 180/86 MM HG, REPEAT BP 153/88 MM HG, HR 79 /MIN, RR 18 /MIN, TEMP 97.4 F, OXYGEN SAT % 96%, SAFE IN ENV? (Y/N) YES, REVIEWED BY: Shellie JONES. EXAMINATION GENERAL EXAMINATION: THE PATIENT IS ALERT, ORIENTED TIMES THREE AND COOPERATIVE. LUNGS ARE CLEAR TO AUSCULTATION. HEART SHOWS REGULAR RHYTHM, NO MURMURS AND NO GALLOPS. ASSESSMENTS SPONDYLOSIS WITHOUT MYELOPATHY OR RADICULOPATHY, LUMBAR REGION - M47.816 (PRIMARY) TREATMENT SPONDYLOSIS WITHOUT MYELOPATHY OR RADICULOPATHY, LUMBAR REGION [facility] FACET BLOCK (PAIN)[id number] COMPLETION OF PROCEDURAL VISIT WHEN MEETS CRITERIARIANJAXON 06/11/2021 10:19:51 AM > 1019 CRITERIA MET PROCEDURES PAIN NURSING RECORD PROCEDURE IN ROOM 0935, PHYSICIAN IN ROOM 0948, START 0954, FINISH 1003, PHYSICIAN OUT OF ROOM 1004, OUT OF ROOM 1009, ECG NORMAL SINUS, PATIENT SHIELDED YES, SAFETY STRAP YES, PREP CHLOROPREP Kimber JONES RN, DRESSING TEGADERM DR. DWYER LOC: HALINA MODILE 06/11/2021 9:43:25 AM > , 1. ALERT, ORIENTED RESP: HALINA MODILE 06/11/2021 9:43:33 AM > , 1. REGULAR, NO DYSPNEA COLOR: RIANJAXON 06/11/2021 9:43:37 AM > , 1. PINK SKIN: RIAN,JAXON 06/11/2021 9:43:41 AM > , 1. WARM, DRY POSITION: RIANJAXON 06/11/2021 9:43:44 AM > , 1. PRONE VITALS: RIANJAXON 06/11/2021 9:43:57 AM > 179/88-69-18-96% , RIANJAXON 06/11/2021 9:55:15 AM > 181/88-73-18-94% 06/11/2021 1018 148/82-80-18-96% NOTES Kimber JONES RN COMPLETION OF PROCEDURE APPOINTMENT: POST PAIN 3 BILATERAL LOW BACK, LEFT GREATER THEN RIGHT, DRESSING SITE DRY AND INTACT BILATERAL LOW BACK, IV N/A, GAIT STEADY, TEACHING COMPLETED, PATIENT ACKNOWLEDGES UNDERSTANDING YES PATIENT VERBALIZES UNDERSTANDING OF POST PROCEDURE INSTRUCTIONS REVIEWED, PROCEDURE APPOINTMENT COMPLETED AT 1019 BY: Kimber JONES RN PN LUMBAR FACET BLOCK DIAGNOSTIC PRE PROCEDURE DIAGNOSIS LUMBAR SPONDYLOSIS POST PROCEDURE DIAGNOSIS LUMBAR SPONDYLOSIS PROCEDURE BILATERAL L3-L4 AND BILATERAL L4-L5 FACET BLOCK DIAGNOSTIC NUMBER [address] KRISTY DWYER TRANSPORTATION DEPARTMENT HEAD NONE ANESTHESIA LOCAL PRE PROCEDURE NOTE THE PATIENT WITH HISTORY OF CHRONIC LOW BACK PAIN. I EVALUATED THE PATIENT AND REVIEWED THE CHART. I WENT OVER THE RISKS, ALTERNATIVES, AND BENEFITS ASSOCIATED WITH THIS PROCEDURE. THE PATIENT WOULD LIKE TO PROCEED AND GAVE CONSENT TO PERFORM THE PROCEDURE. AGREED WITH THE PATIENT, WE ARE DOING THIS PROCEDURE TO DETERMINE IF THE PATIENT IS A CANDIDATE FOR A RADIOFREQUENCY ABLATION OF THE FACETS JOINTS. THE PATIENT DENIES UNEXPLAINABLE WEIGHT LOSS, FEVER, CHILLS, OR NEW CHANGES IN URINARY OR BOWEL CONTROL. THE PATIENT IS COVID-19 NEGATIVE DESCRIPTION OF PROCEDURE THE PATIENT WAS BROUGHT TO THE PROCEDURE ROOM AND PLACED IN THE PRONE POSITION. THE LUMBOSACRAL AREA WAS CLEANED WITH CHLORAPREP SOLUTION AND DRAPED ASEPTICALLY. THE PROCEDURE WAS DONE UNDER STERILE CONDITIONS. A TIMEOUT WAS PERFORMED WHERE THE CONSENTED SITE WAS VERIFIED WITH EVERYONE IN THE ROOM. UNDER FLUOROSCOPIC GUIDANCE, TARGETS WERE SELECTED AT THE INTERSECTION OF THE RIGHT AND LEFT TRANSVERSE PROCESS OF L3, L4 AND L5 WITH ITS RESPECTIVE SUPERIOR ARTICULAR PROCESS WITH A TARGET OF THE MEDIAN BRANCHES OF L2, L3 AND L4. I CONFIRMED AGAIN THE SITE OF TARGET. LIDOCAINE WAS USED TO NUMB THE SKIN AND THE SUBCUTANEOUS TISSUE BELOW IT. SPINAL NEEDLE, 22-GAUGE, WAS ADVANCED UNDER FLUOROSCOPIC GUIDANCE AND FOLLOWING PATIENT FEEDBACK UNTIL THE TARGETS WERE REACHED. POSITION OF THE NEEDLES WAS VERIFIED WITH AP AND LATERAL VIEWS. AFTER PROPER POSITION OF THE NEEDLES WAS ACHIEVED, ISOVUE-M DYE 30%, 0.1 ML, WAS INJECTED AT EACH SITE SHOWING ADEQUATE SPREAD OF THE DYE. THEN, A SOLUTION OF 0.4 ML OF BUPIVACAINE 0.25% WAS INJECTED AT EACH SITE. THE MEDICATIONS WERE VERIFIED WITH THE NURSE. THERE WAS NO EVIDENCE OF BLOOD, PARESTHESIA OR CEREBROSPINAL FLUID DURING THE PROCEDURE. THE PATIENT WAS SENT TO THE RECOVERY ROOM. THE PATIENT WAS MOVING THE EXTREMITIES AND DOING WELL. THERE WERE NO COMPLICATIONS DURING THE PROCEDURE. ESTIMATED BLOOD LOSS WAS LESS THAN 5 ML. FLUOROSCOPY TIME WAS 31 SECONDS POST PROCEDURE NOTE THE PATIENT WILL DOCUMENT THE PAIN LEVEL AND RESPONSE TO THIS PROCEDURE PER PAIN DIARY. THE PATIENT WILL BE SEEN IN A FOLLOW UP IN THE NEXT FEW WEEKS. FURTHER DETERMINATION FOR THE PATIENT'S CASE WILL BE DONE AT THE NEXT VISIT. INSTRUCTIONS WERE GIVEN, QUESTIONS WERE ANSWERED, AND THE PATIENT EXPRESSED UNDERSTANDING AND AGREED WITH THE PLAN. I, KAMI ALLEN, DOCUMENTED THE ABOVE INFORMATION ACTING A SCRIBE FOR DR. DWYER. I HAVE REVIEWED THE ABOVE DOCUMENT, WRITTEN BY KAMI ALLEN, HEALTH INFORMATION CODER, AND I VERIFY THAT IT IS ACCURATE \. PROCEDURE CODES 48969 INJ PARAVERT F JNT L/S 1 LEV, MODIFIERS: 50 [id number] INJ PARAVERT F JNT L/S 2 LEV, MODIFIERS: 50 DISPOSITION & COMMUNICATION FOLLOW UP FOLLOW UP WITH REINFORCING IRON WORKER HELPER (REASON: POST BILATERAL DIAGNOSTIC LUMBAR FACET BLOCK #1 L3-L4, L4-L5) ELECTRONICALLY SIGNED BY KRISTY DWYER MD, MD ON 06/15/2021 AT 10:20 AM EDT DISCLAIMER : THIS IS A VISIT SUMMARY EXTRACTED FROM THE [employer] CHART. IT IS NOT A COPY OF THE [employer] PROGRESS NOTE. CARRILLOD
== END ==
LOC: M PAIN 08:30
PROVIDERS: ATTEND Anesthesiology
DX: M47.816 Spondylosis without myelopathy or radiculopathy, lumbar region (principal); G47.30 Sleep apnea, unspecified; E66.01 Morbid (severe) obesity due to excess calories; Z68.45 Body mass index [BMI] 70 or greater, adult; Z79.899 Other long term (current) drug therapy
CPT/HCPCS: 64493; 64494; Q9967

== ENCOUNTER → 2021-06-18 | Outpatient (CLI) | payer OTHER ==
--- NOTE | 2021-06-20 02:55 | ECWPNPC ---
PATIENT NAME: NELLI NICOLAS : 1970 GENDER: MALE VISIT DATE: 06/18/2021 DISCHARGE DATE: 06/18/21 1056 VISIT LOCKED DATE TIME: PHYSICIAN: PRISCA RAI RESOURCE: PRISCA RAI REASON FOR APPOINTMENT 1. POST BILATERAL DIAGNOSTIC LUMBAR FACET BLOCK L3-4,L4-5 HISTORY OF PRESENT ILLNESS DEPRESSION SCREENING: PHQ-2 (2015 EDITION) LITTLE INTEREST OR PLEASURE IN DOING THINGS?NOT AT ALL FEELING DOWN, DEPRESSED, OR HOPELESS?NOT AT ALL TOTAL SCORE0 GENERAL: HERE FOR POSTPROCEDURE FOLLOW-UP. HAD BILATERAL L3-4, L4-5 DIAGNOSTIC LUMBAR FACET BLOCK ON 06/11/2021. HOURLY DIARY IS REVIEWED. SHOWING SOME IMPROVEMENT FOR A SHORT TIME POST PROCEDURE BUT NOT CONVINCING THAT RADIOFREQUENCY WOULD BE SUCCESSFUL. PAIN IS LOCATED ACROSS LOWER BACK. PAIN IS AGGRAVATED BY PROLONGED STANDING OR LIFTING. REVIEWED MRI OF THE LS SPINE AND DISCUSSED TREATMENT PLAN. REVIEWED WITH PATIENT SOME CONCERNING PATHOLOGY IN THE REPORT TO INCLUDE ANNULAR FISSURE AND DEGENERATIVE NEURAL FORAMINAL NARROWING. BRIEFLY DISCUSSED HAVING A SURGICAL OPINION. -. FALL RISK SCREENING: SCREENING : NO FALLS REPORTED IN THE LAST YEAR. PAIN SCREENING: PATIENT HAS A COMPLAINT OF ACUTE OR CHRONIC PAIN :YES LOCATION OF PAIN:LOW BACK INTENSITY OF PAIN (SCALE OF 1 TO 10):4 WHAT DOES YOUR PAIN FEEL LIKE:ACHING, CONTINOUS DURATION:CONTINOUS, CONSTANT, ALL DAY PAIN IS INCREASED BY:ACTIVITIES, PROLONGED STANDING PAIN IS DECREASED BY:SITTING NURSING NOTE: -. PAIN CENTER INTAKE QUESTIONS: DO YOU HAVE A HISTORY OF MRSA? :NO DO YOU TAKE A BLOOD THINNERS? :NO DO YOU HAVE ANY BLEEDING DISORDERS? :NO ANY NEW NUMBNESS OR WEAKNESS IN YOUR LEGS OR ARMS? :NO ANY PACEMAKER,DEFIBRILLATOR, OR DORSAL COLUMN STIMULATOR? :NO DO YOU HAVE ANY RASHES OR OPEN SORES? :NO ARE YOU ALLERGIC TO IV DYE? :NO ARE YOU DIABETIC? :NO ANY NEW PROBLEMS WITH YOUR MEDICATIONS? :NO HAVE YOU RECEIVED A VACCINE IN THE PAST 30 DAYS? :NO DO YOU PLAN TO RECEIVE A VACCINE IN THE NEXT 21 DAYS? :NO DO YOU NEED ANY PRESCRIPTION? :NO DO YOU TAKE ANY IMMUNOSUPPRESSIVE MEDICATIONS? :NO IS THERE A CHANCE YOU COULD BE ? :NO ARE YOU BREAST FEEDING? :NO CURRENT MEDICATIONS TAKING ALLOPURINOL 300 MG TABLET 1 TABLET ORALLY ONCE A DAY TAKING MULTI FOR HIM - TABLET DIRECTED ORALLY DAILY TAKING LOSARTAN POTASSIUM 25 MG TABLET 1 TABLET ORALLY ONCE A DAY, NOTES: BLOOD PRESSURE TAKING AMLODIPINE BESY-BENAZEPRIL HCL 5-10 MG CAPSULE DIRECTED ORALLY DAILY TAKING ALEVE 220 MG TABLET 1 TABLET WITH FOOD OR MILK NEEDED ORALLY EVERY 12 HRS TAKING VITAMIN C 100 MG TABLET CHEWABLE 1 TABLET ORALLY ONCE A DAY NOT-TAKING DULOXETINE HCL 60 MG CAPSULE DELAYED RELEASE PARTICLES 1 CAPSULE ORALLY ONCE A DAY NOT-TAKING EUFLEXXA 20 MG/2ML SOLUTION PREFILLED SYRINGE 2 ML INTRA-ARTICULAR NOT-TAKING NORVASC 2.5MG TABLET 1 TAB ORALLY DAILY MEDICATION LIST REVIEWED AND RECONCILED WITH THE PATIENT PAST MEDICAL HISTORY ESSENTIAL HYPERTENSION CHRONIC BACK PAIN ALLERGIES N.K.D.A. SOCIAL HISTORY GENERAL: TOBACCO USE ARE YOU A:NONSMOKER LATEX QUESTIONNAIRE LATEX ALLERGY : HAVE YOU EVER DEVELOPED ANY TYPE OF REACTION AFTER HANDLING LATEX PRODUCTS SUCH RUBBER GLOVES, CONDOMS, DIAPHRAGMS, BALLOONS, SOCKS, OR UNDERWEAR?NO LATEX ALLERGY : HAVE YOU EVER DEVELOPED ANY TYPE OF REACTION DURING OR AFTER DENTAL APPOINTMENT, VAGINAL/RECTAL EXAMINATION, SURGICAL PROCEDURE, OR ANY OTHER EXPOSURE?NO LATEX RISK : HAVE YOU EVER HAD ANY DIFFICULTY BREATHING OR HIVES AFTER EATING OR HANDLING ANY FRUITS, OR VEGETABLES; SUCH KIWI, BANANAS, STONE FRUITS, OR CHESTNUTSNO LATEX RISK : DO YOU HAVE A PREVIOUS PERSONAL HISTORY OF MORE THAN NINE SURGERIES, SPINA BIFIDA, OR REPEATED CATHERIZATIONS? NO LATEX RISK : ARE YOU FREQUENTLY EXPOSED TO LATEX PRODUCTS IN YOUR OCCUPATION?NO DATE ASKED : 06/18/2021 ALCOHOL USE: YES, OCCASIONALLY. ALCOHOL SCREENING DID YOU HAVE A DRINK CONTAINING ALCOHOL IN THE PAST YEAR?YES POINTS0 INTERPRETATIONNEGATIVE RECREATIONAL DRUG USE DRUG USE?NO ALEVISM [id number] GNOSTICIST LANGUAGE LANGUAGES SPOKEN:LAO LEARNING BARRIERS / SPECIAL NEEDS CHANGE FROM LAST VISIT?NO BARRIERS TO LEARNING?NO HEARING IMPAIRED?YES : SOMETIME VISION IMPAIRED?YES :CORRECTIVE LENSES COGNITIVELY IMPAIRED?NO READINESS TO LEARN?NO LEARNING PREFERENCES?YES :BOOKLETS, HANDOUTS, DEMONSTRATION/VERBAL INSTRUCTION LEARNING CAPABILITIES PRESENT?YES EMOTIONAL BARRIERS?NO SPECIAL DEVICES?YES :OTHER CPAP WHITE LEAD GRINDER NEEDED?NO REVIEW OF SYSTEMS CONSTITUTIONAL: ANY RECENT FEVER NO . CHILLS NO . WEIGHT CHANGE OF UNKNOWN REASONS NO . GASTROENTEROLOGY: NEW UNEXPLAINABLE CHANGES IN BOWEL CONTROL NO . CONSTIPATION NO . GENITOURINARY: ANY NEW CHANGE IN BLADDER CONTROL? NO . NEUROLOGY: NEW ONSET DIZZINESS OR NEUROLOGICAL CHANGES NOT MENTIONED NO . NEW NUMBNESS OR PAIN PATTERNS NOT MENTIONED AND PERTINENT TO TODAY'S VISIT NO . CARDIOLOGY: NEW CHEST PRESSURE NO . PATIENT DENIES NO . RESPIRATORY: UNEXPLAINABLE COUGH NO . NEW SHORTNESS OF BREATH NO . VITAL SIGNS WT 402.6 LBS, HT 5'10, BMI 78.62 INDEX, BP 184/88 MM HG, REPEAT BP 187/92 MM HG, HR 69 /MIN, RR 18 /MIN, TEMP 98.9 F, OXYGEN SAT % 95%, SAFE IN ENV? (Y/N) YES, NA INITIALS OH 09:52T.RENÉ SOARES, PATIENT STATED THAT HE DID TAKE HIS BLODD PRESSURE MED THIS MORNING. EXAMINATION GENERAL EXAMINATION: GENERALMORBIDLY OBESE . PSYCHAPPROPRIATE MOOD AND AFFECT . FACE:UNREMARKABLE. NECK:NO LYMPHADENOPATHY, SUPPLE. LUNGS:CLEAR TO AUSCULTATION BILATERALLY, NO WHEEZES, RHONCHI, RALES. HEART:NO MURMURS, REGULAR RATE AND RHYTHM. ABDOMEN:OBESE , PROTUBERANT . MUSCULOSKELETAL:NORMAL RANGE OF MOTION MUSCLE STRENGTH TESTING 5/5 BILATERAL TRIGGER POINTS: ELICITED WITH PALPATION OVER LUMBAR PARAVERTEBRAL MUSCLES R>L. PAIN INCREASES IN THIS AREA WITH RANGE OF JOINT MOTION OF THE SPINE.. LUMBAR:SPECIFIC POINT TENDERNESS NOTED OVER LUMBAR FACETS L3-4, L4-5 WITH FACET LOADING . NEUROLOGIC EXAM:NORMAL SENSATION TO LIGHT TOUCH LOWER EXTREMITIES BILATERALLY . DIAGNOSTIC TESTS REVIEWEDMRI L/S SPINE 08/2020 . ASSESSMENTS OTHER CHRONIC PAIN - G89.29 (PRIMARY) SPONDYLOSIS WITHOUT MYELOPATHY OR RADICULOPATHY, LUMBAR REGION - M47.816 TREATMENT OTHER CHRONIC PAIN PAIN PROCEDURE LOGDATE OF PROCEDURE1PROCEDURE:BILATERAL DIAGNOSTIC LUMBAR FACET #1 L3-L4,L4-D1YZNBCC OF PRE SEDATE0/0RESULT:NO SIGNIFICANT IMPROVEMENT MEDICATION: PAIN VALIUM TAB 10MG ORALLY (DIAZEPAM) (ORDERED FOR 07/02/2021) MEDICATION: PAIN OXYCODONE HCL TAB 10MG ORALLY (ORDERED FOR 07/02/2021) NOTES: BILATERAL THERAPEUTIC LUMBAR FACET BLOCK L4-5,L5-S1 PRINTED AND REVIEWED PRE PROCEDURE INFORMATION, PATIENT VERBALIZED UNDERSTANDING ANNA SOARES. PROCEDURE CODES FA211 ESTABILISHED PATIENT [facility] FACILITY CHARGE DISPOSITION & COMMUNICATION FOLLOW UP POST (REASON: BILATERAL THERAPEUTIC LUMBAR FACET BLOCK L4-5,L5-S1) ELECTRONICALLY SIGNED BY PRISCA MELO, LORIE ON 06/19/2021 AT 07:36 PM EDT DISCLAIMER : THIS IS A VISIT SUMMARY EXTRACTED FROM THE [employer] CHART. IT IS NOT A COPY OF THE [employer] PROGRESS NOTE. JILL
== END ==
LOC: M PAIN 09:45
PROVIDERS: ATTEND Nurse Practitioner Family
DX: M47.816 Spondylosis without myelopathy or radiculopathy, lumbar region (principal); G89.29 Other chronic pain; E66.01 Morbid (severe) obesity due to excess calories; Z68.45 Body mass index [BMI] 70 or greater, adult; Z79.899 Other long term (current) drug therapy

== ENCOUNTER → 2021-07-04 | Outpatient (CLI) | payer OTHER | LOC: M LABSMTC 09:47 | PROVIDERS: ATTEND Anesthesiology | DX: Z01.812 Encounter for preprocedural laboratory examination (principal); Z20.822 Contact with and (suspected) exposure to COVID-19 ==

== ENCOUNTER → 2021-07-09 | Outpatient (CLI) | payer BC, OTHER ==
[~2021-07-09] MED LIST changes: +TRIAMCINOLONE ACETONIDE SUSP 40 MG/ML VIAL (J3301) As Ordered ONE
--- NOTE | 2021-07-09 16:57 | REP ---
INDICATION: BILATERAL THERAPEUTIC LUMBAR FACET BLOCK. COMPARISON: None. TECHNIQUE: Two views. 22.4 seconds of fluoroscopy time is reported. FINDINGS: A sequence of 2 last image hold fluoroscopically obtained spot radiograph(s) of the lumbar spine document(s) needle position(s) and contrast injection associated with injection procedure. IMPRESSION: Procedural imaging. <Electronically signed by Jason Koenig > 07/09/21 2007
--- NOTE | 2021-07-12 02:14 | ECWPNPC ---
PATIENT NAME: NELLI NICOLAS : 1970 GENDER: MALE VISIT DATE: 07/09/2021 DISCHARGE DATE: 07/09/21 1315 VISIT LOCKED DATE TIME: PHYSICIAN: KRISTY DWYER MD RESOURCE: KIRSTY DWYER MD REASON FOR APPOINTMENT 1. BILATERAL THERAPEUTIC LUMBAR FACET BLOCK L4-5,L5-S1 HISTORY OF PRESENT ILLNESS GENERAL: -. FALL RISK SCREENING: SCREENING : NO FALLS REPORTED IN THE LAST YEAR. PAIN SCREENING: PATIENT HAS A COMPLAINT OF ACUTE OR CHRONIC PAIN :YES LOCATION OF PAIN:LOW BACK INTENSITY OF PAIN (SCALE OF 1 TO 10):7 WHAT DOES YOUR PAIN FEEL LIKE:ACHING, OTHER TIGHTNESS DURATION:INTERMITTENT PAIN IS INCREASED BY:ACTIVITIES, OTHERS WORKING PAIN IS DECREASED BY:SITTING NURSING NOTE: -. PAIN CENTER INTAKE QUESTIONS: DO YOU HAVE A HISTORY OF MRSA? :NO DO YOU TAKE A BLOOD THINNERS? :NO DO YOU HAVE ANY BLEEDING DISORDERS? :NO ANY NEW NUMBNESS OR WEAKNESS IN YOUR LEGS OR ARMS? :NO ANY PACEMAKER,DEFIBRILLATOR, OR DORSAL COLUMN STIMULATOR? :NO DO YOU HAVE ANY RASHES OR OPEN SORES? :NO ARE YOU ALLERGIC TO IV DYE? :NO ARE YOU DIABETIC? :NO ANY NEW PROBLEMS WITH YOUR MEDICATIONS? :NO HAVE YOU RECEIVED A VACCINE IN THE PAST 30 DAYS? :NO DO YOU PLAN TO RECEIVE A VACCINE IN THE NEXT 21 DAYS? :NO DO YOU TAKE ANY IMMUNOSUPPRESSIVE MEDICATIONS? :YES ALLOPURINOL - LAST DOSE 07/06/21; PATIENT NOT AWARE THAT HE WAS SUPPOSED TO HOLD THIS MEDICATION. HE TOOK HIS DOSE TODAY. INSTRUCTED HIM NOT TO TAKE ANY MORE DOSES UNTIL AFTER HIS PROCEDURE. PATIENT VERBALIZED AN UNDERSTANDING. ANY HISTORY OF SEIZURES? :NO ANY HISTORY OF CARDIAC ISSUES OR EVENTS? :NO DO YOU HAVE ANY KIDNEY OR LIVER DISEASE? :NO DO YOU HAVE SLEEP APNEA? :YES DO YOU WEAR A CPAP?YES ANY RECENT HEAD INJURY? :NO DO YOU HAVE ANY NEW INFECTIONS? :NO IS THERE A CHANCE YOU COULD BE ? :NO ARE YOU BREAST FEEDING? :NO WHEN DID YOU LAST EAT? : 07/08/2021 1800 WHEN DID YOU LAST DRINK? : 07/09/2021 0730 WHAT DID YOU LAST DRINK? : WATER NAME OF PERSON DRIVING YOU HOME? : RACHID - GIRLFRIEND DO YOU HAVE ANY OTHER QUESTIONS OR CONCERNS? : NO CURRENT MEDICATIONS TAKING ALLOPURINOL 300 MG TABLET 1 TABLET ORALLY ONCE A DAY, NOTES: 07/06/21 TAKING MULTI FOR HIM - TABLET DIRECTED ORALLY DAILY TAKING LOSARTAN POTASSIUM 25 MG TABLET 1 TABLET ORALLY ONCE A DAY, NOTES: BLOOD PRESSURE 07/09/2021 0730 TAKING AMLODIPINE BESY-BENAZEPRIL HCL 5-10 MG CAPSULE DIRECTED ORALLY DAILY, NOTES: 07/09/2021 0730 TAKING ALEVE 220 MG TABLET 1 TABLET WITH FOOD OR MILK NEEDED ORALLY EVERY 12 HRS TAKING VITAMIN C 100 MG TABLET CHEWABLE 1 TABLET ORALLY ONCE A DAY NOT-TAKING DULOXETINE HCL 60 MG CAPSULE DELAYED RELEASE PARTICLES 1 CAPSULE ORALLY ONCE A DAY NOT-TAKING EUFLEXXA 20 MG/2ML SOLUTION PREFILLED SYRINGE 2 ML INTRA-ARTICULAR NOT-TAKING NORVASC 2.5MG TABLET 1 TAB ORALLY DAILY MEDICATION LIST REVIEWED AND RECONCILED WITH THE PATIENT PAST MEDICAL HISTORY ESSENTIAL HYPERTENSION CHRONIC BACK PAIN ALLERGIES N.K.D.A. SOCIAL HISTORY GENERAL: TOBACCO USE ARE YOU A:NONSMOKER LATEX QUESTIONNAIRE LATEX ALLERGY : HAVE YOU EVER DEVELOPED ANY TYPE OF REACTION AFTER HANDLING LATEX PRODUCTS SUCH RUBBER GLOVES, CONDOMS, DIAPHRAGMS, BALLOONS, SOCKS, OR UNDERWEAR?NO LATEX ALLERGY : HAVE YOU EVER DEVELOPED ANY TYPE OF REACTION DURING OR AFTER DENTAL APPOINTMENT, VAGINAL/RECTAL EXAMINATION, SURGICAL PROCEDURE, OR ANY OTHER EXPOSURE?NO LATEX RISK : HAVE YOU EVER HAD ANY DIFFICULTY BREATHING OR HIVES AFTER EATING OR HANDLING ANY FRUITS, OR VEGETABLES; SUCH KIWI, BANANAS, STONE FRUITS, OR CHESTNUTSNO LATEX RISK : DO YOU HAVE A PREVIOUS PERSONAL HISTORY OF MORE THAN NINE SURGERIES, SPINA BIFIDA, OR REPEATED CATHERIZATIONS? NO LATEX RISK : ARE YOU FREQUENTLY EXPOSED TO LATEX PRODUCTS IN YOUR OCCUPATION?NO DATE ASKED : 06/18/2021 ALCOHOL USE: YES, OCCASIONALLY. ALCOHOL SCREENING DID YOU HAVE A DRINK CONTAINING ALCOHOL IN THE PAST YEAR?YES POINTS0 INTERPRETATIONNEGATIVE RECREATIONAL DRUG USE DRUG USE?NO BAPTIST [id number] EPIS[employer]IAN LANGUAGE LANGUAGES SPOKEN:PASHTO LEARNING BARRIERS / SPECIAL NEEDS CHANGE FROM LAST VISIT?NO BARRIERS TO LEARNING?NO HEARING IMPAIRED?YES : SOMETIME VISION IMPAIRED?YES :CORRECTIVE LENSES COGNITIVELY IMPAIRED?NO READINESS TO LEARN?NO LEARNING PREFERENCES?YES :BOOKLETS, HANDOUTS, DEMONSTRATION/VERBAL INSTRUCTION LEARNING CAPABILITIES PRESENT?YES EMOTIONAL BARRIERS?NO SPECIAL DEVICES?YES :OTHER CPAP LOAN ADMINISTRATOR NEEDED?NO VITAL SIGNS WT 407.8 LBS, WT-KG 184.98 KG, HT 71 IN, BMI 56.87 INDEX, BP 196/87 MM HG, REPEAT BP 150/88 MANUAL, HR 74 /MIN, RR 18 /MIN, TEMP 97.5 F, OXYGEN SAT % 94%, SAFE IN ENV? (Y/N) YES, NA INITIALS SC 10:54, REVIEWED BY: Shellie JONES RNBP RETAKEN MANUALLY Arianne AWAD RN. EXAMINATION GENERAL: A HISTORY AND PHYSICAL EXAM ON THE PATIENT WAS DONE ON 06/18/2021 (DATE OF ORIGINAL ASSESSMENT) IN PREPARATION OF SURGERY/PROCEDURE. I HAVE NOW REASSESSED THIS PATIENT'S HEALTH STATUS AND PERFORMED AN UPDATED EXAM TODAY. ALL CHANGES IN THE PATIENT'S HISTORY, PHYSICAL EXAM, PRE-EXISTING CONDITONS, AND INDICATIONS/CONTRAINDICATIONS TO THE PLANNED PROCEDURE AND ANESTHESIA ARE DOCUMENTED AND EVALUATED BELOW. I ATTEST TO THE ADEQUACY AND APPROPRIATENESS OF MY ASSESSMENT, AND CONFIRM THE NECESSITY FOR THE PLANNED PROCEDURE. THE PATIENT IS ALERT, ORIENTED TIMES THREE AND COOPERATIVE. LUNGS ARE CLEAR TO AUSCULTATION. HEART SHOWS REGULAR RHYTHM, NO MURMURS AND NO GALLOPS. ASSESSMENTS SPONDYLOSIS WITHOUT MYELOPATHY OR RADICULOPATHY, LUMBAR REGION - M47.816 (PRIMARY) TREATMENT SPONDYLOSIS WITHOUT MYELOPATHY OR RADICULOPATHY, LUMBAR REGION SMC FACET BLOCK (PAIN)[id number] COMPLETION OF PROCEDURAL VISIT WHEN MEETS [id number],BRYAN R 07/09/2021 1:12:09 PM > CRITERIA MET MEDICATION: PAIN VALIUM TAB 10MG ORALLY (DIAZEPAM)[id number],BRYAN R 07/09/2021 12:06:13 PM > PATIENT REFUSED MEDICATION: PAIN OXYCODONE HCL TAB 10MG [id number],BRYAN R 07/09/2021 12:06:33 PM > PATIENT REFUSED OTHERS NOTES: 07/06/21 1700 PAT COMPLETED. Aron SEAY RN. PROCEDURES PAIN NURSING RECORD PROCEDURE IN ROOM 1233, PHYSICIAN IN ROOM 1247, START 1251, FINISH 1257, PHYSICIAN OUT OF ROOM 1259, OUT OF ROOM 1303, ECG NORMAL SINUS, PATIENT SHIELDED YES, SAFETY STRAP YES, PREP CHLOROPREP Arianne AWAD RN, DRESSING TEGADERM DR. DWYER LOC: BRYAN AWAD 07/09/2021 12:51:20 PM > , 1. ALERT, ORIENTED RESP: JANI AWADIL R 07/09/2021 12:51:27 PM > , 1. REGULAR, NO DYSPNEA COLOR: JULIO CESAR AWADGAIL R 07/09/2021 12:51:32 PM > , 1. PINK SKIN: RITESHBRYAN R 07/09/2021 12:51:35 PM > , 1. WARM, DRY POSITION: JULIO CESAR AWADGAIL R 07/09/2021 12:51:39 PM > , 1. PRONE VITALS: RITESHBRYAN R 07/09/2021 12:36:33 PM > 171/88, 63, 18, 94% PETRAS,BRYAN R 07/09/2021 12:37:12 PM >173/85, 61, 18, 94% PETRAS,BRYAN R 07/09/2021 12:51:42 PM > 189/91, 73, 18, 95% PETRAS,BRYAN R 07/09/2021 12:53:30 PM > 191/93, 71, 18, 95% PETRAS,BRYAN R 07/09/2021 12:58:39 PM > 179/84, 66, 18, 94% , PETRAS,BRYAN R 07/09/2021 1:06:12 PM > 152/90, 72, 18, 96% COMPLETION OF PROCEDURE APPOINTMENT: POST PAIN 1, DRESSING SITE DRY AND INTACT, IV N/A, GAIT STEADY, TEACHING COMPLETED, PATIENT ACKNOWLEDGES UNDERSTANDING YES, PROCEDURE APPOINTMENT COMPLETED AT 1315 BY: Arianne AWAD RN PN LUMBAR FACET BLOCK THERAPEUTIC PRE PROCEDURE DIAGNOSIS LUMBAR SPONDYLOSIS, LUMBOSACRAL SPONDYLOSIS POST PROCEDURE DIAGNOSIS LUMBAR SPONDYLOSIS, LUMBOSACRAL SPONDYLOSIS PROCEDURE BILATERAL L4-L5 AND BILATERAL L5-S1 LUMBAR FACET THERAPEUTIC BLOCK SURGEON DR. KRISTY DWYER MUNICIPAL SERVICES MANAGER NONE ANESTHESIA LOCAL PRE PROCEDURE NOTE THE PATIENT HAS A HISTORY OF CHRONIC LOW BACK PAIN. I EVALUATED THE PATIENT AND REVIEWED THE CHART. I WENT OVER THE RISKS, ALTERNATIVES, AND BENEFITS ASSOCIATED WITH THIS PROCEDURE. THE PATIENT WOULD LIKE TO PROCEED AND GIVES CONSENT TO PERFORM THE PROCEDURE. THE PATIENT DENIES UNEXPLAINABLE WEIGHT LOSS, FEVER, CHILLS, OR NEW CHANGES IN URINARY OR BOWEL CONTROL. THE PATIENT IS COVID-19 NEGATIVE DESCRIPTION OF PROCEDURE THE PATIENT WAS BROUGHT TO THE PROCEDURE ROOM AND PLACED IN THE PRONE POSITION. THE LUMBOSACRAL AREA WAS CLEANED WITH CHLORAPREP SOLUTION AND DRAPED ASEPTICALLY. THE PROCEDURE WAS DONE UNDER STERILE CONDITIONS. A TIMEOUT WAS PERFORMED WHERE THE CONSENTED SITE WAS VERIFIED WITH EVERYONE IN THE ROOM. UNDER FLUOROSCOPIC GUIDANCE, THE TARGET POINT WAS SELECTED AT THE RIGHT AND LEFT L4-L5 AND RIGHT AND LEFT L5-S1 FACET JOINTS. TARGET POINT WAS SELECTED AFTER LATERAL ROTATION AND TILT OF THE MAGNIFIER OF THE C-ARM. I CONFIRMED AGAIN THE SITE OF TARGET. LIDOCAINE 0.5% WAS USED TO NUMB THE SKIN AND THE SUBCUTANEOUS TISSUE BELOW IT. SPINAL NEEDLES, 22-GAUGE, WERE ADVANCED UNDER FLUOROSCOPIC GUIDANCE AND FOLLOWING PATIENT FEEDBACK UNTIL THE TARGETS WERE TOUCHED. THE POSITION OF THE NEEDLES WAS VERIFIED WITH AP AND LATERAL VIEWS. AFTER PROPER POSITION OF THE NEEDLES WAS ACHIEVED, ISOVUE-M DYE 30%, 0.1 ML, WAS INJECTED SHOWING ADEQUATE SPREAD OF THE DYE. KENALOG 10 MG WAS INJECTED AT EACH SITE. THEN, A SOLUTION OF 1.0 ML OF BUPIVACAINE 0.125% OF WAS USED TO FLUSH EACH SITE. THE MEDICATION WAS VERIFIED WITH THE NURSE. THERE WAS NO EVIDENCE OF BLOOD, PARESTHESIA OR CEREBROSPINAL FLUID DURING THE PROCEDURE. THE PATIENT WAS SENT TO THE RECOVERY ROOM. THE PATIENT WAS MOVING THE EXTREMITIES AND DOING WELL. THERE WERE NO COMPLICATIONS DURING THE PROCEDURE. ESTIMATED BLOOD LOSS WAS LESS THAN 5 ML. FLUOROSCOPY TIME WAS 48 SECONDS POST PROCEDURE NOTE DEPENDING ON THE RESULTS, WE SHOULD LOOK FOR ANOTHER SOLUTION. THE PATIENT WILL BE SEEN IN A FOLLOW UP IN THE NEXT FEW WEEKS. I AM LOOKING FOR LONG LASTING RELIEF FOR THE PATIENT WITH THIS INTERVENTION. INSTRUCTIONS WERE GIVEN, QUESTIONS WERE ANSWERED, AND THE PATIENT EXPRESSED UNDERSTANDING AND AGREES WITH THE PLAN. I, KAMI ALLEN, DOCUMENTED THE ABOVE INFORMATION ACTING A SCRIBE FOR DR. DWYER. I HAVE REVIEWED THE ABOVE DOCUMENT, WRITTEN BY KAMI ALLEN, BUNCHER OPERATOR, AND I VERIFY THAT IT IS ACCURATE VISIT CODES PROCEDURE CODES 32194 INJ PARAVERT F JNT L/S 1 LEV, MODIFIERS: 50 [id number] INJ PARAVERT F JNT L/S 2 LEV, MODIFIERS: 50 DISPOSITION & COMMUNICATION FOLLOW UP FOLLOW UP WITH RAVELER (REASON: POST BILATERAL THERAPEUTIC LUMBAR FACET BLOCK L4-L5, L5-S1) ELECTRONICALLY SIGNED BY KRISTY DWYER MD, MD ON 07/11/2021 AT 06:06 PM EDT DISCLAIMER : THIS IS A VISIT SUMMARY EXTRACTED FROM THE [facility] CHART. IT IS NOT A COPY OF THE [facility] [facility] PROGRESS NOTE. JILL
== END ==
LOC: M PAIN 11:20
PROVIDERS: ATTEND Anesthesiology
DX: M47.816 Spondylosis without myelopathy or radiculopathy, lumbar region (principal); G47.30 Sleep apnea, unspecified; E66.01 Morbid (severe) obesity due to excess calories; Z68.43 Body mass index [BMI] 50.0-59.9, adult; Z79.899 Other long term (current) drug therapy
CPT/HCPCS: 64493; 64494; J3301; Q9967

== ENCOUNTER 2021-10-13 15:19 | Inpatient (IN) | payer BC, OTHER ==
[~2021-10-13] VITALS: Ht 177.8 cm; Wt 167.7 kg
[2021-10-13] MEDS ORDERED: REMDESIVIR 200 MG in NS 250 ML IV ONE (17:45)
[2021-10-13 17:51] VITALS: BP 142/73
[2021-10-13] MEDS ORDERED: DEXTROSE 50% 50 ML SYRINGE IV PRN (18:40)
[2021-10-13] MEDS ORDERED: GLUCAGON INJ 1MG VIAL SC PRN (18:40)
[2021-10-13] MEDS ORDERED: GLUCOSE 4GM CHEW TABLET PO PRN (18:40)
[2021-10-13] MEDS ORDERED: VITA100T59 PO (18:52)
[2021-10-13] MEDS ORDERED: ALEV220T22 PO (18:52)
[2021-10-13] MEDS ORDERED: LOTR5CAP2 PO (18:52)
[2021-10-13] MEDS ORDERED: ALLO300T2 PO (18:52)
[2021-10-13] MEDS ORDERED: LOSA25TA13 PO (18:52)
[2021-10-13] MEDS ORDERED: HOME MED LIST COMPLETE! XX SCH (18:55)
[2021-10-13] MEDS ORDERED: SODIUM CHLORIDE 0.9% INJ 10 ML SYR IV ONE (19:45)
[2021-10-13 20:00] VITALS: O2SAT 90
[2021-10-13 20:17] LABS: BASO % 0.2 % (0.0-1.0); HEMATOCRIT 42.7 % (42.0-52.0); HEMOGLOBIN 14.2 g/dl (13.5-17.5); LYMPH # 0.5 10^3/uL (1.5-5.0); LYMPH % 8.4 % (24.0-44.0); MEAN CORPUSCULAR HEMOGLOBIN 29.5 pg (27.0-33.0); MEAN CORPUSCULAR HGB CONC 33.3 g/dl (32.0-36.5); MEAN CORPUSCULAR VOLUME 88.8 fl (80.0-96.0); MONO # 0.2 10^3/uL (0.0-0.8); MONO % 3.8 % (2.0-8.0); NEUTROPHILS # 5.3 10^3/uL (1.5-8.5); NEUTROPHILS % 86.9 % (36.0-66.0); PLATELET COUNT, AUTOMATED 125 10^3/uL (150-450); RED BLOOD COUNT 4.81 10^6/uL (4.30-6.10); WHITE BLOOD COUNT 6.1 10^3/uL (4.0-10.0)
[2021-10-13] MEDS: ENOXAPARIN 40MG/0.4ML SYRINGE (J1650 PER 10MG) SC SCH (20:17)
[2021-10-13 20:26] LABS: INR 1.03; PROTHROMBIN TIME 13.9 SECONDS (12.7-14.5)
[2021-10-13 20:27] LABS: PARTIAL THROMBOPLASTIN TIME 41.1 SECONDS (25.9-37.0)
[2021-10-13 20:30] LABS: D-DIMER QUANT 1948.55 ng/ml (<500)
[2021-10-13] MEDS: HumaLOG INSULIN (NovoLOG) PER UNIT SC SCH (20:35)
[2021-10-13 20:50] LABS: ALBUMIN 2.5 GM/DL (3.2-5.2); ALT/SGPT 51 U/L (12-78); BILIRUBIN,DIRECT 0.3 MG/DL (0.0-0.2); BILIRUBIN,TOTAL 0.5 MG/DL (0.2-1.0); BLOOD UREA NITROGEN 26 MG/DL (7-18); CALCIUM LEVEL 8.3 MG/DL (8.5-10.1); CARBON DIOXIDE LEVEL 30 MEQ/L (21-32); CHLORIDE LEVEL 95 MEQ/L (98-107); CPK CREATINE PHOSPHOKINASE 68 U/L (39-308); CREATININE FOR GFR 1.29 MG/DL (0.70-1.30); FERRITIN 2454 NG/ML (26-388); GLOMERULAR FILTRATION RATE > 60.0 (>56); GLUCOSE, FASTING 320 MG/DL (70-100); LDH LACTATE DEHYDROGENASE 420 U/L (87-241); NT-PRO BNP 22 PG/ML (<125); POTASSIUM SERUM 3.5 MEQ/L (3.5-5.1); SODIUM LEVEL 133 MEQ/L (136-145); TOTAL PROTEIN 7.4 GM/DL (6.4-8.2); TROPONIN I < 0.02 NG/ML (< 0.10)
[2021-10-13] MEDS: ALBUTEROL 90 MCG/ACT 8GM HFA INHALER INH SCH (20:59)
[2021-10-13 22:00] VITALS: O2SAT 89
[2021-10-13 22:39] VITALS: O2SAT 91
[2021-10-14] VITALS: BP 123/71
[2021-10-14 00:47] LABS: APPEARANCE, URINE CLEAR (CLEAR); BACTERIA, URINE AUTO NEGATIVE (NEGATIVE); BILIRUBIN, URINE AUTO NEGATIVE (NEGATIVE); BLOOD, URINE BLOOD NEGATIVE (NEGATIVE); COLOR, URINE YELLOW (YELLOW); GLUCOSE, URINE (UA) AUTO 1+ mg/dL (NEGATIVE); KETONE, URINE AUTO NEGATIVE (NEGATIVE); LEUKOCYTE ESTERASE, URINE AUTO NEGATIVE (NEGATIVE); MUCUS, URINE SMALL (NEGATIVE); NITRITE, URINE AUTO NEGATIVE (NEGATIVE); PROTEIN, URINE AUTO 2+ mg/dL (NEGATIVE); RBC, URINE AUTO 2 /HPF (0-3); SPECIFIC GRAVITY URINE AUTO 1.053 (1.002-1.035); SQUAMOUS EPITHELIAL CELL UR AU 0 /HPF (0-6); WBC, URINE AUTO 2 /HPF (0-3)
[2021-10-14 01:08] LABS: RSV AMPLIFICATION NEGATIVE (NEGATIVE)
[2021-10-14 04:00] VITALS: BP 149/74
[2021-10-14 08:00] VITALS: BP 152/73; O2SAT 91
[2021-10-14] MEDS: ALBUTEROL 90 MCG/ACT 8GM HFA INHALER INH SCH ×4 (08:00→20:32)
[2021-10-14 08:18] LABS: BASO % 0.1 % (0.0-1.0); HEMOGLOBIN 13.9 g/dl (13.5-17.5); LYMPH # 0.8 10^3/uL (1.5-5.0); LYMPH % 8.1 % (24.0-44.0); MEAN CORPUSCULAR HGB CONC 33.9 g/dl (32.0-36.5); MEAN CORPUSCULAR VOLUME 88.6 fl (80.0-96.0); MONO # 0.4 10^3/uL (0.0-0.8); NEUTROPHILS # 8.6 10^3/uL (1.5-8.5); PLATELET COUNT, AUTOMATED 148 10^3/uL (150-450); RED BLOOD COUNT 4.63 10^6/uL (4.30-6.10); WHITE BLOOD COUNT 9.9 10^3/uL (4.0-10.0)
[2021-10-14 08:50] LABS: ALBUMIN 2.3 GM/DL (3.2-5.2); BILIRUBIN,DIRECT 0.2 MG/DL (0.0-0.2); BILIRUBIN,TOTAL 0.4 MG/DL (0.2-1.0); CALCIUM LEVEL 8.3 MG/DL (8.5-10.1); CREATININE FOR GFR 1.6 MG/DL (0.70-1.30); GLOMERULAR FILTRATION RATE 48.4 (>56); MAGNESIUM LEVEL 2.1 MG/DL (1.8-2.4); POTASSIUM SERUM 3.4 MEQ/L (3.5-5.1); TOTAL PROTEIN 7.4 GM/DL (6.4-8.2)
[2021-10-14] MEDS ORDERED: BENAZEPRIL 5MG TAB PO SCH (09:00)
[2021-10-14] MEDS ORDERED: LOSARTAN 25 MG TAB PO SCH (09:00)
[2021-10-14] MEDS ORDERED: dexameTHASONE 4 MG/ML 1ML VIAL (J1100 PER 1MG) IV SCH (09:00)
[2021-10-14] MEDS: PANTOPRAZOLE 40MG TAB (PROTONIX) PO SCH (09:12)
[2021-10-14] MEDS: ENOXAPARIN 40MG/0.4ML SYRINGE (J1650 PER 10MG) SC SCH ×2 (09:13→20:27)
[2021-10-14] MEDS: allopurinoL 300 MG TAB PO SCH (09:13)
[2021-10-14] MEDS: amLODIPine 5 MG TAB PO SCH (09:13)
[2021-10-14] MEDS: HumaLOG INSULIN (NovoLOG) PER UNIT SC SCH ×4 (09:13→20:49)
[2021-10-14] MEDS: ASPIRIN 81MG ENTERIC TABLET PO SCH (09:13)
[2021-10-14] MEDS: dexameTHASONE 4 MG/ML 1ML VIAL (J1100 PER 1MG) IV SCH (09:14)
[2021-10-14] MEDS: LEVEMIR (INSULIN DETEMIR) 1 UNITS/0.01ML SC SCH (09:14)
[2021-10-14 12:00] VITALS: BP 121/58; O2SAT 91
[2021-10-14 16:00] VITALS: BP 115/59; O2SAT 93
[2021-10-14] MEDS: REMDESIVIR 100 MG in NS 250 ML IV SCH (17:39)
[2021-10-14] MEDS ORDERED: NS 1,000 ML IV ONE (18:00)
[2021-10-14] MEDS: BARICITINIB 2MG TABLET (OLUMIANT) FOR EUA PO SCH (18:47)
[2021-10-14 20:00] VITALS: BP 115/59; O2SAT 91
[2021-10-15] VITALS (13 sets, daily range): BP systolic 122–165; BP diastolic 60–79; O2SAT 91–95
[2021-10-15 01:30] LABS: ABG BASE EXCESS 3.1 (-2.0-2.0); ABG HCO3 27.8 MEQ/L (22.0-26.0); ABG O2 SATURATION 97.1 % (95.0-99.0); ABG PARTIAL PRESSURE CO2 42.8 mmHg (35.0-45.0); ABG PARTIAL PRESSURE O2 89.1 mmHg (75.0-100.0); ABG STANDARD HCO3 27.2 MEQ/L (22.0-26.0); ABG TOTAL CO2 29.1 MEQ/L (22.0-29.0)
[2021-10-15 04:57] LABS: BASO % 0.1 % (0.0-1.0); HEMATOCRIT 39.5 % (42.0-52.0); HEMOGLOBIN 13.3 g/dl (13.5-17.5); LYMPH # 1.2 10^3/uL (1.5-5.0); LYMPH % 8.9 % (24.0-44.0); MEAN CORPUSCULAR HEMOGLOBIN 29.8 pg (27.0-33.0); MEAN CORPUSCULAR HGB CONC 33.7 g/dl (32.0-36.5); MEAN CORPUSCULAR VOLUME 88.4 fl (80.0-96.0); MONO # 0.7 10^3/uL (0.0-0.8); MONO % 5.6 % (2.0-8.0); NEUTROPHILS # 11.1 10^3/uL (1.5-8.5); NEUTROPHILS % 84.3 % (36.0-66.0); PLATELET COUNT, AUTOMATED 181 10^3/uL (150-450); RED BLOOD COUNT 4.47 10^6/uL (4.30-6.10); WHITE BLOOD COUNT 13.2 10^3/uL (4.0-10.0)
[2021-10-15 05:16] LABS: INR 1.09; PROTHROMBIN TIME 14.5 SECONDS (12.7-14.5)
[2021-10-15 05:17] LABS: PARTIAL THROMBOPLASTIN TIME 33.1 SECONDS (25.9-37.0)
[2021-10-15 05:42] LABS: ALBUMIN 2.1 GM/DL (3.2-5.2); ALT/SGPT 64 U/L (12-78); BILIRUBIN,DIRECT 0.2 MG/DL (0.0-0.2); BILIRUBIN,TOTAL 0.3 MG/DL (0.2-1.0); BLOOD UREA NITROGEN 37 MG/DL (7-18); CALCIUM LEVEL 8.1 MG/DL (8.5-10.1); CARBON DIOXIDE LEVEL 30 MEQ/L (21-32); CHLORIDE LEVEL 101 MEQ/L (98-107); CPK CREATINE PHOSPHOKINASE 79 U/L (39-308); CREATININE FOR GFR 1.17 MG/DL (0.70-1.30); FERRITIN 2398 NG/ML (26-388); GLOMERULAR FILTRATION RATE > 60.0 (>56); GLUCOSE, FASTING 227 MG/DL (70-100); LDH LACTATE DEHYDROGENASE 514 U/L (87-241); MAGNESIUM LEVEL 2.2 MG/DL (1.8-2.4); NT-PRO BNP 30 PG/ML (<125); POTASSIUM SERUM 3.9 MEQ/L (3.5-5.1); SODIUM LEVEL 136 MEQ/L (136-145); TOTAL PROTEIN 6.8 GM/DL (6.4-8.2); TROPONIN I < 0.02 NG/ML (< 0.10)
[2021-10-15] MEDS: PANTOPRAZOLE 40MG TAB (PROTONIX) PO SCH (08:30)
[2021-10-15] MEDS: BARICITINIB 2MG TABLET (OLUMIANT) FOR EUA PO SCH (08:31)
[2021-10-15] MEDS: allopurinoL 300 MG TAB PO SCH (08:31)
[2021-10-15] MEDS: ASPIRIN 81MG ENTERIC TABLET PO SCH (08:31)
[2021-10-15] MEDS: LEVEMIR (INSULIN DETEMIR) 1 UNITS/0.01ML SC SCH (08:32)
[2021-10-15] MEDS: dexameTHASONE 4 MG/ML 1ML VIAL (J1100 PER 1MG) IV SCH (08:32)
[2021-10-15] MEDS: ENOXAPARIN 40MG/0.4ML SYRINGE (J1650 PER 10MG) SC SCH ×2 (08:32→20:23)
[2021-10-15] MEDS: amLODIPine 5 MG TAB PO SCH (08:32)
[2021-10-15] MEDS: HumaLOG INSULIN (NovoLOG) PER UNIT SC SCH ×4 (08:33→20:22)
[2021-10-15] MEDS ORDERED: BARICITINIB 2MG TABLET (OLUMIANT) FOR EUA PO ONE (09:00)
[2021-10-15] MEDS: ALBUTEROL 90 MCG/ACT 8GM HFA INHALER INH SCH ×4 (10:36→20:00)
[2021-10-15] MEDS: REMDESIVIR 100 MG in NS 250 ML IV SCH (18:27)
[2021-10-15] MEDS: SODIUM CHLORIDE 0.9% INJ 10 ML SYR IV SCH (19:51)
[2021-10-16] VITALS (8 sets, daily range): BP systolic 118–156; BP diastolic 68–76; O2SAT 94
[2021-10-16 05:13] LABS: HEMOGLOBIN 13.4 g/dl (13.5-17.5); MEAN CORPUSCULAR HEMOGLOBIN 29.8 pg (27.0-33.0); MEAN CORPUSCULAR HGB CONC 33.5 g/dl (32.0-36.5); MEAN CORPUSCULAR VOLUME 89.1 fl (80.0-96.0); PLATELET COUNT, AUTOMATED 194 10^3/uL (150-450); RED BLOOD COUNT 4.49 10^6/uL (4.30-6.10); WHITE BLOOD COUNT 11.9 10^3/uL (4.0-10.0)
[2021-10-16 05:30] LABS: BLOOD UREA NITROGEN 33 MG/DL (7-18); CALCIUM LEVEL 8.3 MG/DL (8.5-10.1); CARBON DIOXIDE LEVEL 32 MEQ/L (21-32); CHLORIDE LEVEL 100 MEQ/L (98-107); CREATININE FOR GFR 0.93 MG/DL (0.70-1.30); GLOMERULAR FILTRATION RATE > 60.0 (>56); GLUCOSE, FASTING 281 MG/DL (70-100); MAGNESIUM LEVEL 2.2 MG/DL (1.8-2.4); POTASSIUM SERUM 3.8 MEQ/L (3.5-5.1); SODIUM LEVEL 138 MEQ/L (136-145)
[2021-10-16 05:57] LABS: LYMPHOCYTES 11 % (16-44); MONOCYTES 6 % (0-5); NEUTROPHILS 81 % (28-66); PLATELET ESTIMATE NORMAL (NORMAL)
[2021-10-16] MEDS: ALBUTEROL 90 MCG/ACT 8GM HFA INHALER INH SCH ×4 (08:12→20:16)
[2021-10-16] MEDS: HumaLOG INSULIN (NovoLOG) PER UNIT SC SCH ×4 (08:45→20:34)
[2021-10-16] MEDS: LEVEMIR (INSULIN DETEMIR) 1 UNITS/0.01ML SC SCH (08:46)
[2021-10-16] MEDS: ENOXAPARIN 40MG/0.4ML SYRINGE (J1650 PER 10MG) SC SCH ×2 (08:47→20:34)
[2021-10-16] MEDS: dexameTHASONE 4 MG/ML 1ML VIAL (J1100 PER 1MG) IV SCH (08:47)
[2021-10-16] MEDS: cefTRIAXone SOD 2 GM in D5W MINI-BAG PLUS 50 ML IV SCH (08:48)
[2021-10-16] MEDS: AZITHROMYCIN INJ 500 MG, VIAL MATE ADAPTER 1 EACH in NS 250 ML IV SCH (08:48)
[2021-10-16] MEDS: amLODIPine 5 MG TAB PO SCH (08:48)
[2021-10-16] MEDS: PANTOPRAZOLE 40MG TAB (PROTONIX) PO SCH (08:49)
[2021-10-16] MEDS: BARICITINIB 2MG TABLET (OLUMIANT) FOR EUA PO SCH (08:49)
[2021-10-16] MEDS: allopurinoL 300 MG TAB PO SCH (08:49)
[2021-10-16] MEDS: ASPIRIN 81MG ENTERIC TABLET PO SCH (08:49)
[2021-10-16] MEDS: REMDESIVIR 100 MG in NS 250 ML IV SCH (18:49)
[2021-10-16] MEDS: SODIUM CHLORIDE 0.9% INJ 10 ML SYR IV SCH (18:49)
[2021-10-16] MEDS ORDERED: LORazepam 2 MG/ML VIAL IV PRN (21:20)
[2021-10-17 05:10] LABS: HEMATOCRIT 40.7 % (42.0-52.0); HEMOGLOBIN 13.3 g/dl (13.5-17.5); MEAN CORPUSCULAR HEMOGLOBIN 29.5 pg (27.0-33.0); MEAN CORPUSCULAR HGB CONC 32.7 g/dl (32.0-36.5); MEAN CORPUSCULAR VOLUME 90.2 fl (80.0-96.0); PLATELET COUNT, AUTOMATED 210 10^3/uL (150-450); RED BLOOD COUNT 4.51 10^6/uL (4.30-6.10); WHITE BLOOD COUNT 11.2 10^3/uL (4.0-10.0)
[2021-10-17 05:19] LABS: INR 1.05; PROTHROMBIN TIME 14.1 SECONDS (12.7-14.5)
[2021-10-17 05:20] LABS: PARTIAL THROMBOPLASTIN TIME 26.9 SECONDS (25.9-37.0)
[2021-10-17 05:27] LABS: CPK CREATINE PHOSPHOKINASE 33 U/L (39-308); TROPONIN I < 0.02 NG/ML (< 0.10)
[2021-10-17 05:29] LABS: ALBUMIN 2.3 GM/DL (3.2-5.2); ALT/SGPT 74 U/L (12-78); BILIRUBIN,DIRECT 0.1 MG/DL (0.0-0.2); BILIRUBIN,TOTAL 0.3 MG/DL (0.2-1.0); BLOOD UREA NITROGEN 30 MG/DL (7-18); CALCIUM LEVEL 8.3 MG/DL (8.5-10.1); CARBON DIOXIDE LEVEL 34 MEQ/L (21-32); CHLORIDE LEVEL 100 MEQ/L (98-107); CREATININE FOR GFR 0.95 MG/DL (0.70-1.30); FERRITIN 1422 NG/ML (26-388); GLOMERULAR FILTRATION RATE > 60.0 (>56); GLUCOSE, FASTING 265 MG/DL (70-100); LDH LACTATE DEHYDROGENASE 437 U/L (87-241); MAGNESIUM LEVEL 2.1 MG/DL (1.8-2.4); NT-PRO BNP 85 PG/ML (<125); POTASSIUM SERUM 4.3 MEQ/L (3.5-5.1); SODIUM LEVEL 140 MEQ/L (136-145)
[2021-10-17 05:43] LABS: LYMPHOCYTES 6 % (16-44); MONOCYTES 4 % (0-5); NEUTROPHILS 90 % (28-66)
[2021-10-17 05:44] LABS: PLATELET ESTIMATE NORMAL (NORMAL)
[2021-10-17 08:27] VITALS: BP 169/76
[2021-10-17] MEDS: dexameTHASONE 4 MG/ML 1ML VIAL (J1100 PER 1MG) IV SCH (08:29)
[2021-10-17] MEDS: AZITHROMYCIN INJ 500 MG, VIAL MATE ADAPTER 1 EACH in NS 250 ML IV SCH (08:29)
[2021-10-17] MEDS: ENOXAPARIN 40MG/0.4ML SYRINGE (J1650 PER 10MG) SC SCH ×2 (08:30→21:50)
[2021-10-17] MEDS: LEVEMIR (INSULIN DETEMIR) 1 UNITS/0.01ML SC SCH (08:30)
[2021-10-17] MEDS: amLODIPine 5 MG TAB PO SCH (08:31)
[2021-10-17] MEDS: allopurinoL 300 MG TAB PO SCH (08:31)
[2021-10-17] MEDS: PANTOPRAZOLE 40MG TAB (PROTONIX) PO SCH (08:31)
[2021-10-17] MEDS: HumaLOG INSULIN (NovoLOG) PER UNIT SC SCH ×4 (08:31→21:48)
[2021-10-17] MEDS: ASPIRIN 81MG ENTERIC TABLET PO SCH (08:31)
[2021-10-17] MEDS: BARICITINIB 2MG TABLET (OLUMIANT) FOR EUA PO SCH (08:32)
[2021-10-17] MEDS: ALBUTEROL 90 MCG/ACT 8GM HFA INHALER INH SCH ×4 (09:06→20:10)
[2021-10-17 12:05] VITALS: BP 151/73
[2021-10-17] MEDS: cefTRIAXone SOD 2 GM in D5W MINI-BAG PLUS 50 ML IV SCH (12:05)
[2021-10-17] MEDS: BENAZEPRIL 5MG TAB PO SCH (12:06)
[2021-10-17 16:14] VITALS: BP 136/65
[2021-10-17] MEDS: REMDESIVIR 100 MG in NS 250 ML IV SCH (17:15)
[2021-10-17] MEDS: SODIUM CHLORIDE 0.9% INJ 10 ML SYR IV SCH (17:28)
[2021-10-17 20:00] VITALS: BP 151/73
[2021-10-18] VITALS: BP 142/70
[2021-10-18 04:00] VITALS: BP 122/73
[2021-10-18 04:44] LABS: BASO % 0.2 % (0.0-1.0); HEMATOCRIT 39.6 % (42.0-52.0); HEMOGLOBIN 12.8 g/dl (13.5-17.5); LYMPH # 1.1 10^3/uL (1.5-5.0); LYMPH % 9.3 % (24.0-44.0); MEAN CORPUSCULAR HEMOGLOBIN 29.2 pg (27.0-33.0); MEAN CORPUSCULAR HGB CONC 32.3 g/dl (32.0-36.5); MEAN CORPUSCULAR VOLUME 90.4 fl (80.0-96.0); MONO # 0.7 10^3/uL (0.0-0.8); NEUTROPHILS # 9.5 10^3/uL (1.5-8.5); NEUTROPHILS % 82.5 % (36.0-66.0); PLATELET COUNT, AUTOMATED 222 10^3/uL (150-450); RED BLOOD COUNT 4.38 10^6/uL (4.30-6.10); WHITE BLOOD COUNT 11.5 10^3/uL (4.0-10.0)
[2021-10-18 05:10] LABS: BLOOD UREA NITROGEN 27 MG/DL (7-18); CALCIUM LEVEL 7.9 MG/DL (8.5-10.1); CARBON DIOXIDE LEVEL 33 MEQ/L (21-32); CHLORIDE LEVEL 103 MEQ/L (98-107); CREATININE FOR GFR 0.97 MG/DL (0.70-1.30); GLOMERULAR FILTRATION RATE > 60.0 (>56); GLUCOSE, FASTING 275 MG/DL (70-100); MAGNESIUM LEVEL 2.1 MG/DL (1.8-2.4); POTASSIUM SERUM 4.4 MEQ/L (3.5-5.1); SODIUM LEVEL 141 MEQ/L (136-145)
[2021-10-18] MEDS: ALBUTEROL 90 MCG/ACT 8GM HFA INHALER INH SCH ×4 (08:13→20:36)
[2021-10-18 08:42] VITALS: BP 139/69
[2021-10-18] MEDS: LEVEMIR (INSULIN DETEMIR) 1 UNITS/0.01ML SC SCH ×2 (08:42→21:02)
[2021-10-18] MEDS: HumaLOG INSULIN (NovoLOG) PER UNIT SC SCH ×4 (08:43→21:05)
[2021-10-18] MEDS: AZITHROMYCIN INJ 500 MG, VIAL MATE ADAPTER 1 EACH in NS 250 ML IV SCH (08:43)
[2021-10-18] MEDS: ENOXAPARIN 40MG/0.4ML SYRINGE (J1650 PER 10MG) SC SCH ×2 (08:44→21:02)
[2021-10-18] MEDS: dexameTHASONE 4 MG/ML 1ML VIAL (J1100 PER 1MG) IV SCH ×2 (08:44→21:01)
[2021-10-18] MEDS: allopurinoL 300 MG TAB PO SCH (08:44)
[2021-10-18] MEDS: ASPIRIN 81MG ENTERIC TABLET PO SCH (08:44)
[2021-10-18] MEDS: PANTOPRAZOLE 40MG TAB (PROTONIX) PO SCH (08:44)
[2021-10-18] MEDS: amLODIPine 5 MG TAB PO SCH (08:45)
[2021-10-18] MEDS: BARICITINIB 2MG TABLET (OLUMIANT) FOR EUA PO SCH (08:45)
[2021-10-18] MEDS: BENAZEPRIL 5MG TAB PO SCH (08:45)
[2021-10-18] MEDS ORDERED: amLODIPine 5 MG TAB PO SCH (09:00)
[2021-10-18] MEDS: cefTRIAXone SOD 2 GM in D5W MINI-BAG PLUS 50 ML IV SCH (10:33)
[2021-10-18 11:18] VITALS: BP 141/70
[2021-10-18 16:08] VITALS: BP 147/65
[2021-10-18 20:00] VITALS: BP 142/70
[2021-10-19] VITALS: BP 167/77
[2021-10-19 04:00] VITALS: BP 181/87
[2021-10-19 05:41] LABS: BASO % 0.1 % (0.0-1.0); HEMATOCRIT 40.3 % (42.0-52.0); HEMOGLOBIN 13.4 g/dl (13.5-17.5); LYMPH # 0.8 10^3/uL (1.5-5.0); LYMPH % 6.7 % (24.0-44.0); MEAN CORPUSCULAR HEMOGLOBIN 29.6 pg (27.0-33.0); MEAN CORPUSCULAR HGB CONC 33.3 g/dl (32.0-36.5); MONO # 0.5 10^3/uL (0.0-0.8); MONO % 4.1 % (2.0-8.0); NEUTROPHILS # 10.3 10^3/uL (1.5-8.5); NEUTROPHILS % 86.8 % (36.0-66.0); PLATELET COUNT, AUTOMATED 236 10^3/uL (150-450); RED BLOOD COUNT 4.53 10^6/uL (4.30-6.10); WHITE BLOOD COUNT 11.8 10^3/uL (4.0-10.0)
[2021-10-19 05:49] LABS: INR 1.08; PROTHROMBIN TIME 14.4 SECONDS (12.7-14.5)
[2021-10-19 05:50] LABS: PARTIAL THROMBOPLASTIN TIME 28.5 SECONDS (25.9-37.0)
[2021-10-19 06:15] LABS: CPK CREATINE PHOSPHOKINASE 29 U/L (39-308); TROPONIN I < 0.02 NG/ML (< 0.10)
[2021-10-19 06:19] LABS: ALBUMIN 2.2 GM/DL (3.2-5.2); ALT/SGPT 58 U/L (12-78); BILIRUBIN,DIRECT 0.2 MG/DL (0.0-0.2); BILIRUBIN,TOTAL 0.3 MG/DL (0.2-1.0); BLOOD UREA NITROGEN 27 MG/DL (7-18); CALCIUM LEVEL 8.3 MG/DL (8.5-10.1); CARBON DIOXIDE LEVEL 34 MEQ/L (21-32); CHLORIDE LEVEL 101 MEQ/L (98-107); CREATININE FOR GFR 0.96 MG/DL (0.70-1.30); FERRITIN 984 NG/ML (26-388); GLOMERULAR FILTRATION RATE > 60.0 (>56); GLUCOSE, FASTING 224 MG/DL (70-100); LDH LACTATE DEHYDROGENASE 401 U/L (87-241); NT-PRO BNP 108 PG/ML (<125); POTASSIUM SERUM 4.9 MEQ/L (3.5-5.1); SODIUM LEVEL 139 MEQ/L (136-145); TOTAL PROTEIN 6.1 GM/DL (6.4-8.2)
[2021-10-19 07:41] VITALS: BP 161/78
[2021-10-19] MEDS: HumaLOG INSULIN (NovoLOG) PER UNIT SC SCH ×4 (07:45→21:00)
[2021-10-19] MEDS: AZITHROMYCIN INJ 500 MG, VIAL MATE ADAPTER 1 EACH in NS 250 ML IV SCH (07:46)
[2021-10-19] MEDS: ALBUTEROL 90 MCG/ACT 8GM HFA INHALER INH SCH ×4 (09:13→19:36)
[2021-10-19] MEDS: BARICITINIB 2MG TABLET (OLUMIANT) FOR EUA PO SCH (09:31)
[2021-10-19] MEDS: cefTRIAXone SOD 2 GM in D5W MINI-BAG PLUS 50 ML IV SCH (09:31)
[2021-10-19] MEDS: amLODIPine 5 MG TAB PO SCH (09:31)
[2021-10-19] MEDS: allopurinoL 300 MG TAB PO SCH (09:31)
[2021-10-19] MEDS: PANTOPRAZOLE 40MG TAB (PROTONIX) PO SCH (09:31)
[2021-10-19] MEDS: ASPIRIN 81MG ENTERIC TABLET PO SCH (09:31)
[2021-10-19] MEDS: ENOXAPARIN 40MG/0.4ML SYRINGE (J1650 PER 10MG) SC SCH ×2 (09:32→21:00)
[2021-10-19] MEDS: BENAZEPRIL 5MG TAB PO SCH (09:32)
[2021-10-19] MEDS: dexameTHASONE 4 MG/ML 1ML VIAL (J1100 PER 1MG) IV SCH ×2 (09:33→21:00)
[2021-10-19] MEDS: LEVEMIR (INSULIN DETEMIR) 1 UNITS/0.01ML SC SCH ×2 (09:33→21:00)
[2021-10-19 12:00] VITALS: BP 154/74
[2021-10-19 16:00] VITALS: BP 145/76
[2021-10-19 20:00] VITALS: BP 164/77
[2021-10-20] VITALS: BP 170/77
[2021-10-20 04:00] VITALS: BP 169/78
[2021-10-20 04:44] LABS: BASO % 0.2 % (0.0-1.0); HEMATOCRIT 39.6 % (42.0-52.0); HEMOGLOBIN 13.1 g/dl (13.5-17.5); LYMPH # 0.8 10^3/uL (1.5-5.0); LYMPH % 5.3 % (24.0-44.0); MEAN CORPUSCULAR HEMOGLOBIN 29.5 pg (27.0-33.0); MEAN CORPUSCULAR HGB CONC 33.1 g/dl (32.0-36.5); MEAN CORPUSCULAR VOLUME 89.2 fl (80.0-96.0); MONO # 0.6 10^3/uL (0.0-0.8); MONO % 4.2 % (2.0-8.0); NEUTROPHILS # 13.1 10^3/uL (1.5-8.5); NEUTROPHILS % 87.4 % (36.0-66.0); PLATELET COUNT, AUTOMATED 262 10^3/uL (150-450); RED BLOOD COUNT 4.44 10^6/uL (4.30-6.10); WHITE BLOOD COUNT 14.9 10^3/uL (4.0-10.0)
[2021-10-20 05:02] LABS: BLOOD UREA NITROGEN 26 MG/DL (7-18); CALCIUM LEVEL 8.4 MG/DL (8.5-10.1); CARBON DIOXIDE LEVEL 32 MEQ/L (21-32); CHLORIDE LEVEL 104 MEQ/L (98-107); CREATININE FOR GFR 0.97 MG/DL (0.70-1.30); GLOMERULAR FILTRATION RATE > 60.0 (>56); GLUCOSE, FASTING 226 MG/DL (70-100); MAGNESIUM LEVEL 2.2 MG/DL (1.8-2.4); SODIUM LEVEL 140 MEQ/L (136-145)
[2021-10-20 08:00] VITALS: BP 153/78
[2021-10-20] MEDS: ALBUTEROL 90 MCG/ACT 8GM HFA INHALER INH SCH ×4 (08:01→20:35)
[2021-10-20] MEDS: ENOXAPARIN 40MG/0.4ML SYRINGE (J1650 PER 10MG) SC SCH ×2 (09:07→20:33)
[2021-10-20] MEDS: AZITHROMYCIN INJ 500 MG, VIAL MATE ADAPTER 1 EACH in NS 250 ML IV SCH (09:07)
[2021-10-20] MEDS: HumaLOG INSULIN (NovoLOG) PER UNIT SC SCH ×4 (09:08→20:43)
[2021-10-20] MEDS: ASPIRIN 81MG ENTERIC TABLET PO SCH (09:09)
[2021-10-20] MEDS: LEVEMIR (INSULIN DETEMIR) 1 UNITS/0.01ML SC SCH ×2 (09:09→20:33)
[2021-10-20] MEDS: PANTOPRAZOLE 40MG TAB (PROTONIX) PO SCH (09:09)
[2021-10-20] MEDS: dexameTHASONE 4 MG/ML 1ML VIAL (J1100 PER 1MG) IV SCH ×2 (09:09→20:33)
[2021-10-20] MEDS: allopurinoL 300 MG TAB PO SCH (09:09)
[2021-10-20] MEDS: BENAZEPRIL 5MG TAB PO SCH (09:10)
[2021-10-20] MEDS: amLODIPine 5 MG TAB PO SCH (09:10)
[2021-10-20] MEDS: BARICITINIB 2MG TABLET (OLUMIANT) FOR EUA PO SCH (09:11)
[2021-10-20 12:00] VITALS: BP 149/72
[2021-10-20] MEDS: cefTRIAXone SOD 2 GM in D5W MINI-BAG PLUS 50 ML IV SCH (14:34)
[2021-10-20 16:00] VITALS: BP 165/74
[2021-10-20 20:00] VITALS: BP 170/79
[2021-10-21] VITALS: BP 156/76
[2021-10-21 04:00] VITALS: BP 149/72
[2021-10-21] MEDS: ALBUTEROL 90 MCG/ACT 8GM HFA INHALER INH SCH ×4 (07:20→20:08)
[2021-10-21 07:33] VITALS: BP 156/73
[2021-10-21] MEDS: AZITHROMYCIN INJ 500 MG, VIAL MATE ADAPTER 1 EACH in NS 250 ML IV SCH (08:51)
[2021-10-21] MEDS: LEVEMIR (INSULIN DETEMIR) 1 UNITS/0.01ML SC SCH ×2 (08:52→20:29)
[2021-10-21] MEDS: HumaLOG INSULIN (NovoLOG) PER UNIT SC SCH ×4 (08:53→20:01)
[2021-10-21] MEDS: ENOXAPARIN 40MG/0.4ML SYRINGE (J1650 PER 10MG) SC SCH ×2 (08:53→20:30)
[2021-10-21] MEDS: ASPIRIN 81MG ENTERIC TABLET PO SCH (08:53)
[2021-10-21] MEDS: BARICITINIB 2MG TABLET (OLUMIANT) FOR EUA PO SCH (08:54)
[2021-10-21] MEDS: amLODIPine 5 MG TAB PO SCH (08:54)
[2021-10-21] MEDS: PANTOPRAZOLE 40MG TAB (PROTONIX) PO SCH (08:54)
[2021-10-21] MEDS: allopurinoL 300 MG TAB PO SCH (08:54)
[2021-10-21] MEDS: BENAZEPRIL 5MG TAB PO SCH (08:54)
[2021-10-21] MEDS: cefTRIAXone SOD 2 GM in D5W MINI-BAG PLUS 50 ML IV SCH (10:09)
[2021-10-21 12:00] VITALS: BP 159/60
[2021-10-21] MEDS: dexameTHASONE 20MG/5ML VIAL (J1100 PER 1MG) IV SCH ×2 (15:42→20:30)
[2021-10-21 16:00] VITALS: BP 162/70
[2021-10-21 20:00] VITALS: BP 159/69
[2021-10-21] MEDS: ACETAMINOPHEN TAB 650MG DOSE (2X325MG) PO PRN (20:31)
[2021-10-21] MEDS ORDERED: BENZONATATE 100MG CAPSULE PO SCH (21:00)
[2021-10-21] MEDS: BENZONATATE 100MG CAPSULE PO PRN (22:52)
[2021-10-22] VITALS: BP 146/93
[2021-10-22] MEDS: DICLOFENAC EPOLAMINE 1.3 % PATCH TOP SCH ×3 (00:59→23:19)
[2021-10-22 04:00] VITALS: BP 156/72
[2021-10-22] MEDS: ALBUTEROL 90 MCG/ACT 8GM HFA INHALER INH SCH ×4 (07:24→20:32)
[2021-10-22 08:00] VITALS: BP 161/72
[2021-10-22] MEDS: BARICITINIB 2MG TABLET (OLUMIANT) FOR EUA PO SCH (08:19)
[2021-10-22] MEDS: amLODIPine 5 MG TAB PO SCH (08:21)
[2021-10-22] MEDS: HumaLOG INSULIN (NovoLOG) PER UNIT SC SCH ×4 (08:21→20:46)
[2021-10-22] MEDS: allopurinoL 300 MG TAB PO SCH (08:22)
[2021-10-22] MEDS: ASPIRIN 81MG ENTERIC TABLET PO SCH (08:22)
[2021-10-22] MEDS: PANTOPRAZOLE 40MG TAB (PROTONIX) PO SCH (08:22)
[2021-10-22] MEDS: ENOXAPARIN 40MG/0.4ML SYRINGE (J1650 PER 10MG) SC SCH ×2 (08:23→20:31)
[2021-10-22] MEDS: dexameTHASONE 20MG/5ML VIAL (J1100 PER 1MG) IV SCH ×2 (08:23→20:31)
[2021-10-22] MEDS: LEVEMIR (INSULIN DETEMIR) 1 UNITS/0.01ML SC SCH ×2 (08:23→20:31)
[2021-10-22 11:16] LABS: BASO % 0.2 % (0.0-1.0); EOS % 0.1 % (0.0-3.0); HEMATOCRIT 44.2 % (42.0-52.0); HEMOGLOBIN 14.6 g/dl (13.5-17.5); LYMPH # 0.5 10^3/uL (1.5-5.0); LYMPH % 2.6 % (24.0-44.0); MEAN CORPUSCULAR VOLUME 90.8 fl (80.0-96.0); MONO # 0.8 10^3/uL (0.0-0.8); MONO % 4.1 % (2.0-8.0); NEUTROPHILS # 16.3 10^3/uL (1.5-8.5); NEUTROPHILS % 88.7 % (36.0-66.0); PLATELET COUNT, AUTOMATED 287 10^3/uL (150-450); RED BLOOD COUNT 4.87 10^6/uL (4.30-6.10); WHITE BLOOD COUNT 18.4 10^3/uL (4.0-10.0)
[2021-10-22 11:49] LABS: BLOOD UREA NITROGEN 24 MG/DL (7-18); CALCIUM LEVEL 8.6 MG/DL (8.5-10.1); CARBON DIOXIDE LEVEL 31 MEQ/L (21-32); CHLORIDE LEVEL 102 MEQ/L (98-107); CREATININE FOR GFR 0.97 MG/DL (0.70-1.30); GLOMERULAR FILTRATION RATE > 60.0 (>56); GLUCOSE, FASTING 198 MG/DL (70-100); SODIUM LEVEL 138 MEQ/L (136-145)
[2021-10-22 12:00] VITALS: BP 149/71
[2021-10-22] MEDS: BENAZEPRIL 5MG TAB PO SCH (12:13)
[2021-10-22] MEDS ORDERED: FUROSEMIDE 40MG/4ML VIAL (J1940) IV ONE (12:20)
[2021-10-22 16:00] VITALS: BP 141/62
[2021-10-22 20:00] VITALS: BP 166/73
[2021-10-23] VITALS: BP 142/64
[2021-10-23 04:00] VITALS: BP 128/76
[2021-10-23] MEDS: ALBUTEROL 90 MCG/ACT 8GM HFA INHALER INH SCH ×4 (07:44→19:23)
[2021-10-23 08:00] VITALS: BP 166/77
[2021-10-23] MEDS: amLODIPine 5 MG TAB PO SCH (08:08)
[2021-10-23] MEDS: BARICITINIB 2MG TABLET (OLUMIANT) FOR EUA PO SCH (08:08)
[2021-10-23] MEDS: BENAZEPRIL 5MG TAB PO SCH (08:08)
[2021-10-23] MEDS: dexameTHASONE 20MG/5ML VIAL (J1100 PER 1MG) IV SCH (08:09)
[2021-10-23] MEDS: ASPIRIN 81MG ENTERIC TABLET PO SCH (08:09)
[2021-10-23] MEDS: ENOXAPARIN 40MG/0.4ML SYRINGE (J1650 PER 10MG) SC SCH ×2 (08:09→20:29)
[2021-10-23] MEDS: PANTOPRAZOLE 40MG TAB (PROTONIX) PO SCH (08:09)
[2021-10-23] MEDS: allopurinoL 300 MG TAB PO SCH (08:09)
[2021-10-23] MEDS: LEVEMIR (INSULIN DETEMIR) 1 UNITS/0.01ML SC SCH ×2 (08:11→20:29)
[2021-10-23] MEDS: HumaLOG INSULIN (NovoLOG) PER UNIT SC SCH ×4 (09:01→20:48)
[2021-10-23 11:02] LABS: BASO % 0.2 % (0.0-1.0); HEMATOCRIT 43.5 % (42.0-52.0); HEMOGLOBIN 14.3 g/dl (13.5-17.5); LYMPH # 0.6 10^3/uL (1.5-5.0); LYMPH % 3.4 % (24.0-44.0); MEAN CORPUSCULAR HEMOGLOBIN 29.9 pg (27.0-33.0); MEAN CORPUSCULAR HGB CONC 32.9 g/dl (32.0-36.5); MONO # 0.7 10^3/uL (0.0-0.8); MONO % 3.7 % (2.0-8.0); NEUTROPHILS # 16.9 10^3/uL (1.5-8.5); NEUTROPHILS % 90.8 % (36.0-66.0); PLATELET COUNT, AUTOMATED 252 10^3/uL (150-450); RED BLOOD COUNT 4.78 10^6/uL (4.30-6.10); WHITE BLOOD COUNT 18.6 10^3/uL (4.0-10.0)
[2021-10-23 11:04] LABS: BLOOD UREA NITROGEN 27 MG/DL (7-18); CALCIUM LEVEL 8.7 MG/DL (8.5-10.1); CARBON DIOXIDE LEVEL 30 MEQ/L (21-32); CHLORIDE LEVEL 101 MEQ/L (98-107); CREATININE FOR GFR 0.93 MG/DL (0.70-1.30); GLOMERULAR FILTRATION RATE > 60.0 (>56); GLUCOSE, FASTING 217 MG/DL (70-100); MAGNESIUM LEVEL 2.2 MG/DL (1.8-2.4); POTASSIUM SERUM 5.2 MEQ/L (3.5-5.1); SODIUM LEVEL 136 MEQ/L (136-145)
[2021-10-23 12:00] VITALS: BP 136/65
[2021-10-23] MEDS: DICLOFENAC EPOLAMINE 1.3 % PATCH TOP SCH ×2 (12:47→23:28)
[2021-10-23 16:00] VITALS: BP 144/70
[2021-10-23 20:00] VITALS: BP 162/73
[2021-10-24] VITALS (7 sets, daily range): BP systolic 140–165; BP diastolic 66–76; O2SAT 87
[2021-10-24 05:42] LABS: HEMATOCRIT 43.3 % (42.0-52.0); HEMOGLOBIN 14.2 g/dl (13.5-17.5); MEAN CORPUSCULAR HEMOGLOBIN 29.7 pg (27.0-33.0); MEAN CORPUSCULAR HGB CONC 32.8 g/dl (32.0-36.5); MEAN CORPUSCULAR VOLUME 90.6 fl (80.0-96.0); PLATELET COUNT, AUTOMATED 256 10^3/uL (150-450); RED BLOOD COUNT 4.78 10^6/uL (4.30-6.10); WHITE BLOOD COUNT 18.6 10^3/uL (4.0-10.0)
[2021-10-24 05:56] LABS: FIBRINOGEN 399 MG/DL (268-480); INR 1.08; PARTIAL THROMBOPLASTIN TIME 27.1 SECONDS (25.9-37.0); PROTHROMBIN TIME 14.4 SECONDS (12.7-14.5)
[2021-10-24 06:14] LABS: ALBUMIN 2.4 GM/DL (3.2-5.2); ALT/SGPT 48 U/L (12-78); BILIRUBIN,DIRECT 0.2 MG/DL (0.0-0.2); BILIRUBIN,TOTAL 0.4 MG/DL (0.2-1.0); BLOOD UREA NITROGEN 27 MG/DL (7-18); C REACTIVE PROTEIN QUANTITATIV 0.71 MG/DL (0.00-0.30); CARBON DIOXIDE LEVEL 34 MEQ/L (21-32); CHLORIDE LEVEL 102 MEQ/L (98-107); CREATININE FOR GFR 0.77 MG/DL (0.70-1.30); FERRITIN 1245 NG/ML (26-388); GLOMERULAR FILTRATION RATE > 60.0 (>56); GLUCOSE, FASTING 113 MG/DL (70-100); LDH LACTATE DEHYDROGENASE 517 U/L (87-241); MAGNESIUM LEVEL 2.3 MG/DL (1.8-2.4); POTASSIUM SERUM 4.7 MEQ/L (3.5-5.1); SODIUM LEVEL 139 MEQ/L (136-145)
[2021-10-24 06:43] LABS: D-DIMER QUANT > 4000 ng/ml (<500)
[2021-10-24] MEDS: ALBUTEROL 90 MCG/ACT 8GM HFA INHALER INH SCH ×4 (08:25→19:30)
[2021-10-24] MEDS: LEVEMIR (INSULIN DETEMIR) 1 UNITS/0.01ML SC SCH ×2 (09:33→20:46)
[2021-10-24] MEDS: HumaLOG INSULIN (NovoLOG) PER UNIT SC SCH ×4 (09:33→20:38)
[2021-10-24] MEDS: BENAZEPRIL 5MG TAB PO SCH (09:34)
[2021-10-24] MEDS: amLODIPine 5 MG TAB PO SCH (09:35)
[2021-10-24] MEDS: dexameTHASONE 20MG/5ML VIAL (J1100 PER 1MG) IV SCH (09:36)
[2021-10-24] MEDS: ENOXAPARIN 40MG/0.4ML SYRINGE (J1650 PER 10MG) SC SCH ×2 (09:36→20:47)
[2021-10-24] MEDS: PANTOPRAZOLE 40MG TAB (PROTONIX) PO SCH (09:36)
[2021-10-24] MEDS: allopurinoL 300 MG TAB PO SCH (09:36)
[2021-10-24] MEDS: ASPIRIN 81MG ENTERIC TABLET PO SCH (09:37)
[2021-10-24] MEDS: BARICITINIB 2MG TABLET (OLUMIANT) FOR EUA PO SCH (09:37)
[2021-10-24] MEDS: DICLOFENAC EPOLAMINE 1.3 % PATCH TOP SCH (12:43)
[2021-10-24] MEDS: ACETAMINOPHEN TAB 650MG DOSE (2X325MG) PO PRN (17:33)
[2021-10-24] MEDS: BENZONATATE 100MG CAPSULE PO PRN (22:41)
[2021-10-25] VITALS (7 sets, daily range): BP systolic 141–165; BP diastolic 62–85; O2SAT 89
[2021-10-25] MEDS: DICLOFENAC EPOLAMINE 1.3 % PATCH TOP SCH ×3 (00:16→23:11)
[2021-10-25] MEDS: BENZONATATE 100MG CAPSULE PO PRN ×2 (00:18→23:12)
[2021-10-25] MEDS ORDERED: guaiFENesin ER 600 MG TAB PO ONE (01:05)
[2021-10-25 05:08] LABS: HEMATOCRIT 41.8 % (42.0-52.0); HEMOGLOBIN 13.6 g/dl (13.5-17.5); MEAN CORPUSCULAR HGB CONC 32.5 g/dl (32.0-36.5); MEAN CORPUSCULAR VOLUME 92.3 fl (80.0-96.0); PLATELET COUNT, AUTOMATED 214 10^3/uL (150-450); RED BLOOD COUNT 4.53 10^6/uL (4.30-6.10); WHITE BLOOD COUNT 17.2 10^3/uL (4.0-10.0)
[2021-10-25 05:40] LABS: BLOOD UREA NITROGEN 22 MG/DL (7-18); CALCIUM LEVEL 8.5 MG/DL (8.5-10.1); CARBON DIOXIDE LEVEL 35 MEQ/L (21-32); CHLORIDE LEVEL 102 MEQ/L (98-107); CREATININE FOR GFR 0.71 MG/DL (0.70-1.30); GLOMERULAR FILTRATION RATE > 60.0 (>56); GLUCOSE, FASTING 126 MG/DL (70-100); MAGNESIUM LEVEL 1.7 MG/DL (1.8-2.4); POTASSIUM SERUM 4.7 MEQ/L (3.5-5.1); SODIUM LEVEL 138 MEQ/L (136-145)
[2021-10-25] MEDS ORDERED: MAG SULF 1GM/100ML (MAG RUN) 1 GM in IV 1 EA IV ONE ×2 (05:50→07:10)
[2021-10-25] MEDS: ALBUTEROL 90 MCG/ACT 8GM HFA INHALER INH SCH ×4 (08:00→19:35)
[2021-10-25] MEDS: HumaLOG INSULIN (NovoLOG) PER UNIT SC SCH ×4 (12:21→21:25)
[2021-10-25] MEDS: LORazepam 2 MG/ML VIAL IV PRN ×2 (12:22→23:12)
[2021-10-25] MEDS: BARICITINIB 2MG TABLET (OLUMIANT) FOR EUA PO SCH (12:23)
[2021-10-25] MEDS: guaiFENesin 200 MG TAB PO PRN ×2 (12:24→21:23)
[2021-10-25] MEDS: BENAZEPRIL 5MG TAB PO SCH (12:24)
[2021-10-25] MEDS: ASPIRIN 81MG ENTERIC TABLET PO SCH (12:24)
[2021-10-25] MEDS: PANTOPRAZOLE 40MG TAB (PROTONIX) PO SCH (12:24)
[2021-10-25] MEDS: allopurinoL 300 MG TAB PO SCH (12:25)
[2021-10-25] MEDS: amLODIPine 5 MG TAB PO SCH (12:25)
[2021-10-25] MEDS: dexameTHASONE 20MG/5ML VIAL (J1100 PER 1MG) IV SCH (12:26)
[2021-10-25] MEDS: ENOXAPARIN 40MG/0.4ML SYRINGE (J1650 PER 10MG) SC SCH ×2 (12:26→21:24)
[2021-10-25] MEDS: LEVEMIR (INSULIN DETEMIR) 1 UNITS/0.01ML SC SCH ×2 (12:27→21:24)
[2021-10-25] MEDS ORDERED: LORazepam 2 MG/ML VIAL As Ordered ONE (20:01)
[2021-10-26] VITALS (7 sets, daily range): BP systolic 141–169; BP diastolic 65–93
[2021-10-26 04:32] LABS: HEMATOCRIT 41.5 % (42.0-52.0); HEMOGLOBIN 13.4 g/dl (13.5-17.5); MEAN CORPUSCULAR HEMOGLOBIN 29.7 pg (27.0-33.0); MEAN CORPUSCULAR HGB CONC 32.3 g/dl (32.0-36.5); PLATELET COUNT, AUTOMATED 186 10^3/uL (150-450); RED BLOOD COUNT 4.51 10^6/uL (4.30-6.10); WHITE BLOOD COUNT 16.3 10^3/uL (4.0-10.0)
[2021-10-26 04:43] LABS: INR 1.06; PROTHROMBIN TIME 14.2 SECONDS (12.7-14.5)
[2021-10-26 04:44] LABS: FIBRINOGEN 500 MG/DL (268-480)
[2021-10-26 05:01] LABS: D-DIMER QUANT > 4000 ng/ml (<500)
[2021-10-26 05:12] LABS: ALBUMIN 2.3 GM/DL (3.2-5.2); ALT/SGPT 63 U/L (12-78); BILIRUBIN,DIRECT 0.3 MG/DL (0.0-0.2); BILIRUBIN,TOTAL 0.7 MG/DL (0.2-1.0); BLOOD UREA NITROGEN 23 MG/DL (7-18); C REACTIVE PROTEIN QUANTITATIV 5.34 MG/DL (0.00-0.30); CALCIUM LEVEL 8.1 MG/DL (8.5-10.1); CARBON DIOXIDE LEVEL 36 MEQ/L (21-32); CHLORIDE LEVEL 101 MEQ/L (98-107); CREATININE FOR GFR 0.73 MG/DL (0.70-1.30); FERRITIN 1617 NG/ML (26-388); GLOMERULAR FILTRATION RATE > 60.0 (>56); GLUCOSE, FASTING 156 MG/DL (70-100); LDH LACTATE DEHYDROGENASE 584 U/L (87-241); MAGNESIUM LEVEL 2.1 MG/DL (1.8-2.4); POTASSIUM SERUM 4.9 MEQ/L (3.5-5.1); SODIUM LEVEL 139 MEQ/L (136-145); TOTAL PROTEIN 5.9 GM/DL (6.4-8.2)
[2021-10-26] MEDS: HumaLOG INSULIN (NovoLOG) PER UNIT SC SCH ×4 (08:08→20:37)
[2021-10-26] MEDS: LEVEMIR (INSULIN DETEMIR) 1 UNITS/0.01ML SC SCH ×2 (08:08→20:42)
[2021-10-26] MEDS: BENAZEPRIL 5MG TAB PO SCH (08:08)
[2021-10-26] MEDS: ASPIRIN 81MG ENTERIC TABLET PO SCH (08:08)
[2021-10-26] MEDS: BARICITINIB 2MG TABLET (OLUMIANT) FOR EUA PO SCH (08:09)
[2021-10-26] MEDS: BENZONATATE 100MG CAPSULE PO PRN ×2 (08:09→20:43)
[2021-10-26] MEDS: amLODIPine 5 MG TAB PO SCH (08:10)
[2021-10-26] MEDS: ENOXAPARIN 40MG/0.4ML SYRINGE (J1650 PER 10MG) SC SCH ×2 (08:10→20:43)
[2021-10-26] MEDS: dexameTHASONE 20MG/5ML VIAL (J1100 PER 1MG) IV SCH (08:10)
[2021-10-26] MEDS: PANTOPRAZOLE 40MG TAB (PROTONIX) PO SCH (08:10)
[2021-10-26] MEDS: allopurinoL 300 MG TAB PO SCH (08:10)
[2021-10-26] MEDS: ALBUTEROL 90 MCG/ACT 8GM HFA INHALER INH SCH ×4 (08:35→20:24)
[2021-10-26] MEDS: DICLOFENAC EPOLAMINE 1.3 % PATCH TOP SCH (13:24)
[2021-10-26] MEDS ORDERED: LORazepam 2 MG/ML VIAL As Ordered ONE (20:11)
[2021-10-26] MEDS: guaiFENesin 200 MG TAB PO PRN (20:44)
[2021-10-27] VITALS (8 sets, daily range): BP systolic 134–179; BP diastolic 60–81
[2021-10-27] MEDS: DICLOFENAC EPOLAMINE 1.3 % PATCH TOP SCH ×2 (00:10→13:29)
[2021-10-27 04:33] LABS: HEMATOCRIT 43.8 % (42.0-52.0); MEAN CORPUSCULAR HEMOGLOBIN 29.8 pg (27.0-33.0); MEAN CORPUSCULAR VOLUME 93.2 fl (80.0-96.0); PLATELET COUNT, AUTOMATED 208 10^3/uL (150-450); WHITE BLOOD COUNT 14.8 10^3/uL (4.0-10.0)
[2021-10-27 04:53] LABS: BLOOD UREA NITROGEN 21 MG/DL (7-18); CALCIUM LEVEL 8.4 MG/DL (8.5-10.1); CARBON DIOXIDE LEVEL 37 MEQ/L (21-32); CHLORIDE LEVEL 100 MEQ/L (98-107); GLOMERULAR FILTRATION RATE > 60.0 (>56); GLUCOSE, FASTING 131 MG/DL (70-100); POTASSIUM SERUM 4.9 MEQ/L (3.5-5.1); SODIUM LEVEL 140 MEQ/L (136-145)
[2021-10-27] MEDS: ALBUTEROL 90 MCG/ACT 8GM HFA INHALER INH SCH ×4 (08:13→21:06)
[2021-10-27] MEDS: ENOXAPARIN 40MG/0.4ML SYRINGE (J1650 PER 10MG) SC SCH ×2 (09:20→21:56)
[2021-10-27] MEDS: HumaLOG INSULIN (NovoLOG) PER UNIT SC SCH ×4 (09:20→21:56)
[2021-10-27] MEDS: LEVEMIR (INSULIN DETEMIR) 1 UNITS/0.01ML SC SCH ×2 (09:20→21:56)
[2021-10-27] MEDS: allopurinoL 300 MG TAB PO SCH (09:21)
[2021-10-27] MEDS: dexameTHASONE 20MG/5ML VIAL (J1100 PER 1MG) IV SCH (09:21)
[2021-10-27] MEDS: amLODIPine 5 MG TAB PO SCH (09:21)
[2021-10-27] MEDS: BENAZEPRIL 5MG TAB PO SCH (09:21)
[2021-10-27] MEDS: ASPIRIN 81MG ENTERIC TABLET PO SCH (09:21)
[2021-10-27] MEDS: PANTOPRAZOLE 40MG TAB (PROTONIX) PO SCH (09:21)
[2021-10-27] MEDS: BENZONATATE 100MG CAPSULE PO PRN ×2 (09:22→21:57)
[2021-10-27] MEDS: BARICITINIB 2MG TABLET (OLUMIANT) FOR EUA PO SCH (09:22)
[2021-10-27] MEDS ORDERED: LORazepam 2 MG/ML VIAL As Ordered ONE (21:41)
[2021-10-27] MEDS: LORazepam 2 MG/ML VIAL IV PRN (21:57)
[2021-10-27] MEDS: guaiFENesin 200 MG TAB PO PRN (21:58)
[2021-10-27] MEDS: ACETAMINOPHEN TAB 650MG DOSE (2X325MG) PO PRN (21:58)
[2021-10-28] VITALS (8 sets, daily range): BP systolic 137–167; BP diastolic 63–76
[2021-10-28] MEDS: DICLOFENAC EPOLAMINE 1.3 % PATCH TOP SCH ×2 (00:43→12:50)
[2021-10-28 05:08] LABS: HEMATOCRIT 39.7 % (42.0-52.0); HEMOGLOBIN 12.8 g/dl (13.5-17.5); MEAN CORPUSCULAR HEMOGLOBIN 29.6 pg (27.0-33.0); MEAN CORPUSCULAR HGB CONC 32.2 g/dl (32.0-36.5); MEAN CORPUSCULAR VOLUME 91.7 fl (80.0-96.0); PLATELET COUNT, AUTOMATED 194 10^3/uL (150-450); RED BLOOD COUNT 4.33 10^6/uL (4.30-6.10); WHITE BLOOD COUNT 10.4 10^3/uL (4.0-10.0)
[2021-10-28 05:22] LABS: INR 1.06; PROTHROMBIN TIME 14.2 SECONDS (12.7-14.5)
[2021-10-28 05:23] LABS: PARTIAL THROMBOPLASTIN TIME 28.7 SECONDS (25.9-37.0)
[2021-10-28 05:26] LABS: D-DIMER QUANT 3930.74 ng/ml (<500)
[2021-10-28 05:52] LABS: ALBUMIN 2.3 GM/DL (3.2-5.2); ALT/SGPT 83 U/L (12-78); BILIRUBIN,DIRECT 0.2 MG/DL (0.0-0.2); BILIRUBIN,TOTAL 0.6 MG/DL (0.2-1.0); BLOOD UREA NITROGEN 22 MG/DL (7-18); C REACTIVE PROTEIN QUANTITATIV 1.27 MG/DL (0.00-0.30); CALCIUM LEVEL 8.4 MG/DL (8.5-10.1); CARBON DIOXIDE LEVEL 38 MEQ/L (21-32); CHLORIDE LEVEL 99 MEQ/L (98-107); CREATININE FOR GFR 0.75 MG/DL (0.70-1.30); FERRITIN 1214 NG/ML (26-388); GLOMERULAR FILTRATION RATE > 60.0 (>56); GLUCOSE, FASTING 104 MG/DL (70-100); LDH LACTATE DEHYDROGENASE 469 U/L (87-241); MAGNESIUM LEVEL 2.1 MG/DL (1.8-2.4); POTASSIUM SERUM 4.7 MEQ/L (3.5-5.1); SODIUM LEVEL 139 MEQ/L (136-145)
[2021-10-28] MEDS: HumaLOG INSULIN (NovoLOG) PER UNIT SC SCH ×4 (07:30→21:00)
[2021-10-28] MEDS: ALBUTEROL 90 MCG/ACT 8GM HFA INHALER INH SCH ×4 (07:47→18:26)
[2021-10-28] MEDS: dexameTHASONE 20MG/5ML VIAL (J1100 PER 1MG) IV SCH (08:26)
[2021-10-28] MEDS: LEVEMIR (INSULIN DETEMIR) 1 UNITS/0.01ML SC SCH ×2 (08:26→21:18)
[2021-10-28] MEDS: amLODIPine 5 MG TAB PO SCH (08:26)
[2021-10-28] MEDS: ASPIRIN 81MG ENTERIC TABLET PO SCH (08:26)
[2021-10-28] MEDS: ENOXAPARIN 40MG/0.4ML SYRINGE (J1650 PER 10MG) SC SCH ×2 (08:27→19:53)
[2021-10-28] MEDS: BARICITINIB 2MG TABLET (OLUMIANT) FOR EUA PO SCH (08:27)
[2021-10-28] MEDS: allopurinoL 300 MG TAB PO SCH (08:27)
[2021-10-28] MEDS: BENAZEPRIL 5MG TAB PO SCH (08:27)
[2021-10-28] MEDS: PANTOPRAZOLE 40MG TAB (PROTONIX) PO SCH (08:27)
[2021-10-28] MEDS: BENZONATATE 100MG CAPSULE PO PRN ×2 (08:31→19:53)
[2021-10-28] MEDS: ACETAMINOPHEN TAB 650MG DOSE (2X325MG) PO PRN (19:54)
[2021-10-29] VITALS: BP 155/70
[2021-10-29] MEDS: DICLOFENAC EPOLAMINE 1.3 % PATCH TOP SCH ×3 (00:04→23:58)
[2021-10-29 04:00] VITALS: BP 156/79
[2021-10-29 06:58] LABS: HEMATOCRIT 42.9 % (42.0-52.0); HEMOGLOBIN 13.8 g/dl (13.5-17.5); MEAN CORPUSCULAR HEMOGLOBIN 29.7 pg (27.0-33.0); MEAN CORPUSCULAR HGB CONC 32.2 g/dl (32.0-36.5); MEAN CORPUSCULAR VOLUME 92.5 fl (80.0-96.0); PLATELET COUNT, AUTOMATED 204 10^3/uL (150-450); RED BLOOD COUNT 4.64 10^6/uL (4.30-6.10); WHITE BLOOD COUNT 12.8 10^3/uL (4.0-10.0)
[2021-10-29 07:00] LABS: BLOOD UREA NITROGEN 19 MG/DL (7-18); CALCIUM LEVEL 8.9 MG/DL (8.5-10.1); CARBON DIOXIDE LEVEL 37 MEQ/L (21-32); CHLORIDE LEVEL 100 MEQ/L (98-107); GLOMERULAR FILTRATION RATE > 60.0 (>56); GLUCOSE, FASTING 87 MG/DL (70-100); POTASSIUM SERUM 4.5 MEQ/L (3.5-5.1); SODIUM LEVEL 141 MEQ/L (136-145)
[2021-10-29] MEDS: ALBUTEROL 90 MCG/ACT 8GM HFA INHALER INH SCH ×4 (07:21→19:43)
[2021-10-29] MEDS: HumaLOG INSULIN (NovoLOG) PER UNIT SC SCH ×4 (07:30→21:00)
[2021-10-29 08:00] VITALS: BP 164/74
[2021-10-29] MEDS: ASPIRIN 81MG ENTERIC TABLET PO SCH (08:24)
[2021-10-29] MEDS: BARICITINIB 2MG TABLET (OLUMIANT) FOR EUA PO SCH (08:25)
[2021-10-29] MEDS: PANTOPRAZOLE 40MG TAB (PROTONIX) PO SCH (08:26)
[2021-10-29] MEDS: BENAZEPRIL 5MG TAB PO SCH (08:26)
[2021-10-29] MEDS: amLODIPine 5 MG TAB PO SCH (08:28)
[2021-10-29] MEDS: allopurinoL 300 MG TAB PO SCH (08:28)
[2021-10-29] MEDS: BENZONATATE 100MG CAPSULE PO PRN ×2 (08:29→14:20)
[2021-10-29] MEDS: ENOXAPARIN 40MG/0.4ML SYRINGE (J1650 PER 10MG) SC SCH ×2 (08:31→20:51)
[2021-10-29] MEDS: LEVEMIR (INSULIN DETEMIR) 1 UNITS/0.01ML SC SCH ×2 (08:31→20:51)
[2021-10-29] MEDS: dexameTHASONE 20MG/5ML VIAL (J1100 PER 1MG) IV SCH (08:32)
[2021-10-29] MEDS: SERTRALINE HCL 25 MG TABLET PO SCH (10:24)
[2021-10-29] MEDS: SODIUM CHLORIDE NASAL 0.65% SPRAY BTL (OCEAN) PRN (10:25)
[2021-10-29 12:00] VITALS: BP 142/63
[2021-10-29 16:00] VITALS: BP 137/64
[2021-10-29 20:00] VITALS: BP 140/68
[2021-10-30] VITALS (7 sets, daily range): BP systolic 129–165; BP diastolic 60–80
[2021-10-30 05:19] LABS: HEMATOCRIT 39.5 % (42.0-52.0); HEMOGLOBIN 12.9 g/dl (13.5-17.5); MEAN CORPUSCULAR HEMOGLOBIN 29.8 pg (27.0-33.0); MEAN CORPUSCULAR HGB CONC 32.7 g/dl (32.0-36.5); MEAN CORPUSCULAR VOLUME 91.2 fl (80.0-96.0); PLATELET COUNT, AUTOMATED 169 10^3/uL (150-450); RED BLOOD COUNT 4.33 10^6/uL (4.30-6.10); WHITE BLOOD COUNT 9.7 10^3/uL (4.0-10.0)
[2021-10-30 05:35] LABS: ALT/SGPT 121 U/L (12-78); BLOOD UREA NITROGEN 19 MG/DL (7-18); CALCIUM LEVEL 8.4 MG/DL (8.5-10.1); CARBON DIOXIDE LEVEL 35 MEQ/L (21-32); CHLORIDE LEVEL 103 MEQ/L (98-107); CREATININE FOR GFR 0.72 MG/DL (0.70-1.30); GLOMERULAR FILTRATION RATE > 60.0 (>56); GLUCOSE, FASTING 104 MG/DL (70-100); LDH LACTATE DEHYDROGENASE 450 U/L (87-241); POTASSIUM SERUM 4.6 MEQ/L (3.5-5.1); SODIUM LEVEL 140 MEQ/L (136-145)
[2021-10-30 05:36] LABS: ALBUMIN 2.4 GM/DL (3.2-5.2); BILIRUBIN,DIRECT 0.2 MG/DL (0.0-0.2); BILIRUBIN,TOTAL 0.6 MG/DL (0.2-1.0); C REACTIVE PROTEIN QUANTITATIV 0.56 MG/DL (0.00-0.30); FERRITIN 1231 NG/ML (26-388); MAGNESIUM LEVEL 1.9 MG/DL (1.8-2.4); TOTAL PROTEIN 5.8 GM/DL (6.4-8.2)
[2021-10-30 05:43] LABS: INR 1.04; PROTHROMBIN TIME 14.1 SECONDS (12.7-14.5)
[2021-10-30 05:46] LABS: D-DIMER QUANT 3024.56 ng/ml (<500)
[2021-10-30] MEDS: ACETAMINOPHEN TAB 650MG DOSE (2X325MG) PO PRN ×2 (07:24→23:24)
[2021-10-30] MEDS: BENZONATATE 100MG CAPSULE PO PRN (07:25)
[2021-10-30] MEDS: HumaLOG INSULIN (NovoLOG) PER UNIT SC SCH ×4 (07:25→21:00)
[2021-10-30] MEDS: ALBUTEROL 90 MCG/ACT 8GM HFA INHALER INH SCH ×4 (08:10→19:15)
[2021-10-30] MEDS: BENAZEPRIL 5MG TAB PO SCH (09:13)
[2021-10-30] MEDS: allopurinoL 300 MG TAB PO SCH (09:13)
[2021-10-30] MEDS: PANTOPRAZOLE 40MG TAB (PROTONIX) PO SCH (09:14)
[2021-10-30] MEDS: SERTRALINE HCL 25 MG TABLET PO SCH (09:14)
[2021-10-30] MEDS: dexameTHASONE 20MG/5ML VIAL (J1100 PER 1MG) IV SCH (09:14)
[2021-10-30] MEDS: ASPIRIN 81MG ENTERIC TABLET PO SCH (09:14)
[2021-10-30] MEDS: amLODIPine 5 MG TAB PO SCH (09:14)
[2021-10-30] MEDS: LEVEMIR (INSULIN DETEMIR) 1 UNITS/0.01ML SC SCH ×2 (09:15→20:14)
[2021-10-30] MEDS: ENOXAPARIN 40MG/0.4ML SYRINGE (J1650 PER 10MG) SC SCH ×2 (09:15→20:13)
[2021-10-30] MEDS: SODIUM CHLORIDE NASAL 0.65% SPRAY BTL (OCEAN) PRN (09:23)
[2021-10-30] MEDS: DICLOFENAC EPOLAMINE 1.3 % PATCH TOP SCH ×2 (11:51→23:22)
[2021-10-30] MEDS: guaiFENesin 200 MG TAB PO PRN (23:24)
[2021-10-31] VITALS: BP 117/56
[2021-10-31 04:00] VITALS: BP 110/56
[2021-10-31 05:31] LABS: HEMATOCRIT 40.2 % (42.0-52.0); HEMOGLOBIN 12.9 g/dl (13.5-17.5); MEAN CORPUSCULAR HEMOGLOBIN 29.5 pg (27.0-33.0); MEAN CORPUSCULAR HGB CONC 32.1 g/dl (32.0-36.5); MEAN CORPUSCULAR VOLUME 91.8 fl (80.0-96.0); PLATELET COUNT, AUTOMATED 160 10^3/uL (150-450); RED BLOOD COUNT 4.38 10^6/uL (4.30-6.10); WHITE BLOOD COUNT 10.3 10^3/uL (4.0-10.0)
[2021-10-31 05:58] LABS: BLOOD UREA NITROGEN 18 MG/DL (7-18); CALCIUM LEVEL 8.5 MG/DL (8.5-10.1); CARBON DIOXIDE LEVEL 34 MEQ/L (21-32); CHLORIDE LEVEL 101 MEQ/L (98-107); CREATININE FOR GFR 0.77 MG/DL (0.70-1.30); GLOMERULAR FILTRATION RATE > 60.0 (>56); GLUCOSE, FASTING 93 MG/DL (70-100); POTASSIUM SERUM 4.7 MEQ/L (3.5-5.1); SODIUM LEVEL 139 MEQ/L (136-145)
[2021-10-31] MEDS: HumaLOG INSULIN (NovoLOG) PER UNIT SC SCH ×4 (07:30→21:00)
[2021-10-31 08:00] VITALS: BP 149/64
[2021-10-31] MEDS: ALBUTEROL 90 MCG/ACT 8GM HFA INHALER INH SCH ×4 (08:25→19:17)
[2021-10-31] MEDS: SERTRALINE HCL 25 MG TABLET PO SCH (08:25)
[2021-10-31] MEDS: PANTOPRAZOLE 40MG TAB (PROTONIX) PO SCH (08:25)
[2021-10-31] MEDS: BENAZEPRIL 5MG TAB PO SCH (08:25)
[2021-10-31] MEDS: ASPIRIN 81MG ENTERIC TABLET PO SCH (08:25)
[2021-10-31] MEDS: allopurinoL 300 MG TAB PO SCH (08:25)
[2021-10-31] MEDS: amLODIPine 5 MG TAB PO SCH (08:25)
[2021-10-31] MEDS: ENOXAPARIN 40MG/0.4ML SYRINGE (J1650 PER 10MG) SC SCH ×2 (08:26→21:11)
[2021-10-31] MEDS: LEVEMIR (INSULIN DETEMIR) 1 UNITS/0.01ML SC SCH ×2 (08:26→21:51)
[2021-10-31] MEDS: dexameTHASONE 20MG/5ML VIAL (J1100 PER 1MG) IV SCH (08:26)
[2021-10-31 12:00] VITALS: BP 151/66
[2021-10-31] MEDS: DICLOFENAC EPOLAMINE 1.3 % PATCH TOP SCH (12:30)
[2021-10-31 16:01] VITALS: BP 147/70
[2021-10-31 20:00] VITALS: BP 148/73
[2021-11-01] VITALS: BP 172/77
[2021-11-01 04:00] VITALS: BP 147/73
[2021-11-01 05:10] LABS: HEMATOCRIT 37.7 % (42.0-52.0); HEMOGLOBIN 12.5 g/dl (13.5-17.5); MEAN CORPUSCULAR HGB CONC 33.2 g/dl (32.0-36.5); MEAN CORPUSCULAR VOLUME 90.4 fl (80.0-96.0); PLATELET COUNT, AUTOMATED 140 10^3/uL (150-450); RED BLOOD COUNT 4.17 10^6/uL (4.30-6.10); WHITE BLOOD COUNT 9.1 10^3/uL (4.0-10.0)
[2021-11-01 05:27] LABS: BLOOD UREA NITROGEN 19 MG/DL (7-18); CARBON DIOXIDE LEVEL 35 MEQ/L (21-32); CHLORIDE LEVEL 99 MEQ/L (98-107); CREATININE FOR GFR 0.75 MG/DL (0.70-1.30); GLOMERULAR FILTRATION RATE > 60.0 (>56); GLUCOSE, FASTING 107 MG/DL (70-100); POTASSIUM SERUM 4.2 MEQ/L (3.5-5.1); SODIUM LEVEL 138 MEQ/L (136-145)
[2021-11-01] MEDS: HumaLOG INSULIN (NovoLOG) PER UNIT SC SCH ×4 (07:30→20:26)
[2021-11-01 08:00] VITALS: BP 159/68
[2021-11-01] MEDS: ALBUTEROL 90 MCG/ACT 8GM HFA INHALER INH SCH ×4 (08:14→19:15)
[2021-11-01] MEDS: PANTOPRAZOLE 40MG TAB (PROTONIX) PO SCH (08:20)
[2021-11-01] MEDS: SERTRALINE HCL 25 MG TABLET PO SCH (08:20)
[2021-11-01] MEDS: amLODIPine 5 MG TAB PO SCH (08:22)
[2021-11-01] MEDS: ASPIRIN 81MG ENTERIC TABLET PO SCH (08:22)
[2021-11-01] MEDS: BENAZEPRIL 5MG TAB PO SCH (08:22)
[2021-11-01] MEDS: allopurinoL 300 MG TAB PO SCH (08:22)
[2021-11-01] MEDS: ENOXAPARIN 40MG/0.4ML SYRINGE (J1650 PER 10MG) SC SCH ×2 (08:23→20:53)
[2021-11-01] MEDS: dexameTHASONE 20MG/5ML VIAL (J1100 PER 1MG) IV SCH (08:24)
[2021-11-01] MEDS: LEVEMIR (INSULIN DETEMIR) 1 UNITS/0.01ML SC SCH ×2 (08:24→20:53)
[2021-11-01 12:00] VITALS: BP 145/68
[2021-11-01] MEDS: DICLOFENAC EPOLAMINE 1.3 % PATCH TOP SCH ×3 (12:07→23:54)
[2021-11-01 16:00] VITALS: BP 154/78
[2021-11-01] MEDS ORDERED: MIDAZOLAM INJ 2MG/2ML VIAL (J2250 PER 1MG) IV ONE (17:10)
[2021-11-01] MEDS ORDERED: fentaNYL 100 MCG/2 ML INJECTION IV ONE (17:15)
[2021-11-01] MEDS ORDERED: fentaNYL CITRATE 1,000 MCG in NS 80 ML IV SCH (18:00)
[2021-11-01 20:00] VITALS: BP 143/77
[2021-11-01] MEDS: BENZONATATE 100MG CAPSULE PO PRN (20:56)
[2021-11-01] MEDS: ACETAMINOPHEN TAB 650MG DOSE (2X325MG) PO PRN (20:56)
[2021-11-02] VITALS: BP 146/76
[2021-11-02 04:00] VITALS: BP 149/68
[2021-11-02 04:44] LABS: HEMATOCRIT 38.2 % (42.0-52.0); HEMOGLOBIN 12.4 g/dl (13.5-17.5); MEAN CORPUSCULAR HEMOGLOBIN 29.7 pg (27.0-33.0); MEAN CORPUSCULAR HGB CONC 32.5 g/dl (32.0-36.5); MEAN CORPUSCULAR VOLUME 91.6 fl (80.0-96.0); PLATELET COUNT, AUTOMATED 135 10^3/uL (150-450); RED BLOOD COUNT 4.17 10^6/uL (4.30-6.10)
[2021-11-02 05:06] LABS: BLOOD UREA NITROGEN 19 MG/DL (7-18); CALCIUM LEVEL 7.8 MG/DL (8.5-10.1); CARBON DIOXIDE LEVEL 34 MEQ/L (21-32); CHLORIDE LEVEL 100 MEQ/L (98-107); CREATININE FOR GFR 0.74 MG/DL (0.70-1.30); GLOMERULAR FILTRATION RATE > 60.0 (>56); GLUCOSE, FASTING 101 MG/DL (70-100); POTASSIUM SERUM 3.9 MEQ/L (3.5-5.1); SODIUM LEVEL 138 MEQ/L (136-145)
[2021-11-02] MEDS: HumaLOG INSULIN (NovoLOG) PER UNIT SC SCH ×4 (07:30→20:58)
[2021-11-02] MEDS: ALBUTEROL 90 MCG/ACT 8GM HFA INHALER INH SCH ×4 (07:45→19:57)
[2021-11-02 08:06] VITALS: BP 150/71
[2021-11-02] MEDS: ASPIRIN 81MG ENTERIC TABLET PO SCH (08:08)
[2021-11-02] MEDS: BENAZEPRIL 5MG TAB PO SCH (08:08)
[2021-11-02] MEDS: amLODIPine 5 MG TAB PO SCH (08:08)
[2021-11-02] MEDS: SERTRALINE HCL 25 MG TABLET PO SCH (08:08)
[2021-11-02] MEDS: ENOXAPARIN 40MG/0.4ML SYRINGE (J1650 PER 10MG) SC SCH ×2 (08:09→20:58)
[2021-11-02] MEDS: allopurinoL 300 MG TAB PO SCH (08:09)
[2021-11-02] MEDS: PANTOPRAZOLE 40MG TAB (PROTONIX) PO SCH (08:09)
[2021-11-02] MEDS: LEVEMIR (INSULIN DETEMIR) 1 UNITS/0.01ML SC SCH ×2 (08:09→20:58)
[2021-11-02] MEDS: dexameTHASONE 20MG/5ML VIAL (J1100 PER 1MG) IV SCH (08:09)
[2021-11-02] MEDS: DICLOFENAC EPOLAMINE 1.3 % PATCH TOP SCH ×2 (11:49→23:56)
[2021-11-02 16:32] VITALS: BP 148/77
[2021-11-02 16:58] VITALS: BP 151/86
[2021-11-02 20:00] VITALS: BP 151/67
[2021-11-03 04:00] VITALS: BP 117/57
[2021-11-03] MEDS: ALBUTEROL 90 MCG/ACT 8GM HFA INHALER INH SCH ×4 (08:00→19:57)
[2021-11-03 08:24] LABS: HEMATOCRIT 39.5 % (42.0-52.0); HEMOGLOBIN 12.8 g/dl (13.5-17.5); MEAN CORPUSCULAR HEMOGLOBIN 29.5 pg (27.0-33.0); MEAN CORPUSCULAR HGB CONC 32.4 g/dl (32.0-36.5); PLATELET COUNT, AUTOMATED 133 10^3/uL (150-450); RED BLOOD COUNT 4.34 10^6/uL (4.30-6.10); WHITE BLOOD COUNT 9.9 10^3/uL (4.0-10.0)
[2021-11-03 08:36] LABS: BLOOD UREA NITROGEN 19 MG/DL (7-18); CALCIUM LEVEL 8.5 MG/DL (8.5-10.1); CARBON DIOXIDE LEVEL 34 MEQ/L (21-32); CHLORIDE LEVEL 103 MEQ/L (98-107); CREATININE FOR GFR 0.72 MG/DL (0.70-1.30); GLOMERULAR FILTRATION RATE > 60.0 (>56); GLUCOSE, FASTING 76 MG/DL (70-100); SODIUM LEVEL 143 MEQ/L (136-145)
[2021-11-03] MEDS: ASPIRIN 81MG ENTERIC TABLET PO SCH (08:38)
[2021-11-03] MEDS: ENOXAPARIN 40MG/0.4ML SYRINGE (J1650 PER 10MG) SC SCH ×2 (08:39→20:44)
[2021-11-03] MEDS: amLODIPine 5 MG TAB PO SCH (08:39)
[2021-11-03] MEDS: PANTOPRAZOLE 40MG TAB (PROTONIX) PO SCH (08:39)
[2021-11-03] MEDS: SERTRALINE HCL 25 MG TABLET PO SCH (08:40)
[2021-11-03] MEDS: HumaLOG INSULIN (NovoLOG) PER UNIT SC SCH ×4 (08:40→20:44)
[2021-11-03] MEDS: BENAZEPRIL 5MG TAB PO SCH (08:40)
[2021-11-03] MEDS: LEVEMIR (INSULIN DETEMIR) 1 UNITS/0.01ML SC SCH ×2 (08:42→20:44)
[2021-11-03] MEDS: dexameTHASONE 20MG/5ML VIAL (J1100 PER 1MG) IV SCH (08:43)
[2021-11-03 14:00] VITALS: BP 153/62
[2021-11-03] MEDS: DICLOFENAC EPOLAMINE 1.3 % PATCH TOP SCH ×2 (14:04→23:40)
[2021-11-03] MEDS: allopurinoL 300 MG TAB PO SCH (17:38)
[2021-11-03 19:57] VITALS: O2SAT 92
[2021-11-03 20:00] VITALS: BP 132/63
[2021-11-03] MEDS: BENZONATATE 100MG CAPSULE PO PRN (23:40)
[2021-11-04 04:00] VITALS: BP 148/81
[2021-11-04] MEDS: ALBUTEROL 90 MCG/ACT 8GM HFA INHALER INH SCH ×4 (06:11→20:56)
[2021-11-04] MEDS: HumaLOG INSULIN (NovoLOG) PER UNIT SC SCH ×4 (08:26→20:46)
[2021-11-04] MEDS: ASPIRIN 81MG ENTERIC TABLET PO SCH (08:27)
[2021-11-04] MEDS: BENAZEPRIL 5MG TAB PO SCH (08:27)
[2021-11-04] MEDS: amLODIPine 5 MG TAB PO SCH (08:27)
[2021-11-04] MEDS: PANTOPRAZOLE 40MG TAB (PROTONIX) PO SCH (08:28)
[2021-11-04] MEDS: SERTRALINE HCL 25 MG TABLET PO SCH (08:28)
[2021-11-04] MEDS: LEVEMIR (INSULIN DETEMIR) 1 UNITS/0.01ML SC SCH ×2 (08:29→20:45)
[2021-11-04] MEDS: dexameTHASONE 20MG/5ML VIAL (J1100 PER 1MG) IV SCH (08:29)
[2021-11-04] MEDS: ENOXAPARIN 40MG/0.4ML SYRINGE (J1650 PER 10MG) SC SCH ×2 (08:29→20:46)
[2021-11-04] MEDS: allopurinoL 300 MG TAB PO SCH (08:29)
[2021-11-04 09:10] LABS: HEMATOCRIT 38.8 % (42.0-52.0); HEMOGLOBIN 12.9 g/dl (13.5-17.5); MEAN CORPUSCULAR HEMOGLOBIN 29.9 pg (27.0-33.0); MEAN CORPUSCULAR HGB CONC 33.2 g/dl (32.0-36.5); PLATELET COUNT, AUTOMATED 126 10^3/uL (150-450); RED BLOOD COUNT 4.31 10^6/uL (4.30-6.10); WHITE BLOOD COUNT 9.7 10^3/uL (4.0-10.0)
[2021-11-04 09:29] LABS: BLOOD UREA NITROGEN 18 MG/DL (7-18); CALCIUM LEVEL 8.5 MG/DL (8.5-10.1); CARBON DIOXIDE LEVEL 32 MEQ/L (21-32); CHLORIDE LEVEL 102 MEQ/L (98-107); CREATININE FOR GFR 0.72 MG/DL (0.70-1.30); GLOMERULAR FILTRATION RATE > 60.0 (>56); GLUCOSE, FASTING 93 MG/DL (70-100); POTASSIUM SERUM 3.9 MEQ/L (3.5-5.1); SODIUM LEVEL 140 MEQ/L (136-145)
[2021-11-04] MEDS: DICLOFENAC EPOLAMINE 1.3 % PATCH TOP SCH (12:42)
[2021-11-04 14:00] VITALS: BP 142/86
[2021-11-04 20:00] VITALS: BP 142/62
[2021-11-04] MEDS: BENZONATATE 100MG CAPSULE PO PRN (20:46)
[2021-11-04] MEDS: ACETAMINOPHEN TAB 650MG DOSE (2X325MG) PO PRN (20:46)
[2021-11-04 21:00] VITALS: O2SAT 95
[2021-11-05] MEDS: DICLOFENAC EPOLAMINE 1.3 % PATCH TOP SCH ×3 (00:33→23:16)
[2021-11-05 04:00] VITALS: BP 155/86
[2021-11-05 06:12] LABS: HEMATOCRIT 36.6 % (42.0-52.0); HEMOGLOBIN 11.9 g/dl (13.5-17.5); MEAN CORPUSCULAR HEMOGLOBIN 29.7 pg (27.0-33.0); MEAN CORPUSCULAR HGB CONC 32.5 g/dl (32.0-36.5); MEAN CORPUSCULAR VOLUME 91.3 fl (80.0-96.0); PLATELET COUNT, AUTOMATED 106 10^3/uL (150-450); RED BLOOD COUNT 4.01 10^6/uL (4.30-6.10); WHITE BLOOD COUNT 9.2 10^3/uL (4.0-10.0)
[2021-11-05 06:35] LABS: BLOOD UREA NITROGEN 19 MG/DL (7-18); CALCIUM LEVEL 8.5 MG/DL (8.5-10.1); CARBON DIOXIDE LEVEL 33 MEQ/L (21-32); CHLORIDE LEVEL 103 MEQ/L (98-107); CREATININE FOR GFR 0.62 MG/DL (0.70-1.30); GLOMERULAR FILTRATION RATE > 60.0 (>56); GLUCOSE, FASTING 117 MG/DL (70-100); POTASSIUM SERUM 3.8 MEQ/L (3.5-5.1); SODIUM LEVEL 140 MEQ/L (136-145)
[2021-11-05] MEDS: ALBUTEROL 90 MCG/ACT 8GM HFA INHALER INH SCH ×4 (08:10→19:27)
[2021-11-05] MEDS: PANTOPRAZOLE 40MG TAB (PROTONIX) PO SCH (08:19)
[2021-11-05] MEDS: ENOXAPARIN 40MG/0.4ML SYRINGE (J1650 PER 10MG) SC SCH ×2 (08:19→20:36)
[2021-11-05] MEDS: BENAZEPRIL 5MG TAB PO SCH (08:20)
[2021-11-05] MEDS: SERTRALINE HCL 25 MG TABLET PO SCH (08:20)
[2021-11-05] MEDS: allopurinoL 300 MG TAB PO SCH (08:20)
[2021-11-05] MEDS: ASPIRIN 81MG ENTERIC TABLET PO SCH (08:20)
[2021-11-05] MEDS: amLODIPine 5 MG TAB PO SCH (08:20)
[2021-11-05] MEDS: LEVEMIR (INSULIN DETEMIR) 1 UNITS/0.01ML SC SCH ×2 (08:21→20:43)
[2021-11-05] MEDS: HumaLOG INSULIN (NovoLOG) PER UNIT SC SCH ×4 (08:22→20:07)
[2021-11-05] MEDS: dexameTHASONE 20MG/5ML VIAL (J1100 PER 1MG) IV SCH (08:22)
[2021-11-05 14:56] VITALS: BP 135/71
[2021-11-05 20:00] VITALS: BP 134/71
[2021-11-05] MEDS: BENZONATATE 100MG CAPSULE PO PRN (20:43)
[2021-11-05] MEDS: ACETAMINOPHEN TAB 650MG DOSE (2X325MG) PO PRN (20:43)
[2021-11-05 21:00] VITALS: O2SAT 95
[2021-11-06 04:00] VITALS: BP 159/83
[2021-11-06 06:23] LABS: HEMATOCRIT 37.6 % (42.0-52.0); HEMOGLOBIN 12.4 g/dl (13.5-17.5); MEAN CORPUSCULAR HEMOGLOBIN 29.8 pg (27.0-33.0); MEAN CORPUSCULAR VOLUME 90.4 fl (80.0-96.0); PLATELET COUNT, AUTOMATED 111 10^3/uL (150-450); RED BLOOD COUNT 4.16 10^6/uL (4.30-6.10); WHITE BLOOD COUNT 8.7 10^3/uL (4.0-10.0)
[2021-11-06 06:49] LABS: BLOOD UREA NITROGEN 18 MG/DL (7-18); CALCIUM LEVEL 8.1 MG/DL (8.5-10.1); CARBON DIOXIDE LEVEL 34 MEQ/L (21-32); CHLORIDE LEVEL 102 MEQ/L (98-107); CREATININE FOR GFR 0.75 MG/DL (0.70-1.30); GLOMERULAR FILTRATION RATE > 60.0 (>56); GLUCOSE, FASTING 106 MG/DL (70-100); POTASSIUM SERUM 3.8 MEQ/L (3.5-5.1); SODIUM LEVEL 139 MEQ/L (136-145)
[2021-11-06] MEDS: ALBUTEROL 90 MCG/ACT 8GM HFA INHALER INH SCH ×4 (07:35→20:59)
[2021-11-06] MEDS: dexameTHASONE 20MG/5ML VIAL (J1100 PER 1MG) IV SCH (08:48)
[2021-11-06] MEDS: allopurinoL 300 MG TAB PO SCH (08:48)
[2021-11-06] MEDS: SERTRALINE HCL 25 MG TABLET PO SCH (08:48)
[2021-11-06] MEDS: HumaLOG INSULIN (NovoLOG) PER UNIT SC SCH ×4 (08:48→19:57)
[2021-11-06] MEDS: LEVEMIR (INSULIN DETEMIR) 1 UNITS/0.01ML SC SCH ×2 (08:48→20:07)
[2021-11-06] MEDS: BENAZEPRIL 5MG TAB PO SCH (08:49)
[2021-11-06] MEDS: ASPIRIN 81MG ENTERIC TABLET PO SCH (08:49)
[2021-11-06] MEDS: amLODIPine 5 MG TAB PO SCH (08:49)
[2021-11-06] MEDS: PANTOPRAZOLE 40MG TAB (PROTONIX) PO SCH (08:50)
[2021-11-06] MEDS: ENOXAPARIN 40MG/0.4ML SYRINGE (J1650 PER 10MG) SC SCH ×2 (08:51→20:07)
[2021-11-06] MEDS ORDERED: ISOVUE-370 76% 100ML VIAL As Ordered ONE (11:36)
[2021-11-06 14:00] VITALS: BP 132/61
[2021-11-06] MEDS: DICLOFENAC EPOLAMINE 1.3 % PATCH TOP SCH ×2 (14:03→20:12)
[2021-11-06] MEDS: ACETAMINOPHEN TAB 650MG DOSE (2X325MG) PO PRN (20:07)
[2021-11-06] MEDS: BENZONATATE 100MG CAPSULE PO PRN (20:07)
[2021-11-06 22:00] VITALS: BP 146/69
[2021-11-07 06:00] VITALS: BP 154/86
[2021-11-07 06:34] LABS: HEMATOCRIT 38.1 % (42.0-52.0); HEMOGLOBIN 12.3 g/dl (13.5-17.5); MEAN CORPUSCULAR HEMOGLOBIN 29.3 pg (27.0-33.0); MEAN CORPUSCULAR HGB CONC 32.3 g/dl (32.0-36.5); MEAN CORPUSCULAR VOLUME 90.7 fl (80.0-96.0); PLATELET COUNT, AUTOMATED 117 10^3/uL (150-450); WHITE BLOOD COUNT 8.6 10^3/uL (4.0-10.0)
[2021-11-07 06:46] LABS: BLOOD UREA NITROGEN 15 MG/DL (7-18); CALCIUM LEVEL 8.4 MG/DL (8.5-10.1); CARBON DIOXIDE LEVEL 34 MEQ/L (21-32); CHLORIDE LEVEL 101 MEQ/L (98-107); CREATININE FOR GFR 0.73 MG/DL (0.70-1.30); GLOMERULAR FILTRATION RATE > 60.0 (>56); GLUCOSE, FASTING 90 MG/DL (70-100); SODIUM LEVEL 141 MEQ/L (136-145)
[2021-11-07] MEDS: HumaLOG INSULIN (NovoLOG) PER UNIT SC SCH ×4 (07:30→21:00)
[2021-11-07] MEDS: ALBUTEROL 90 MCG/ACT 8GM HFA INHALER INH SCH ×4 (08:13→15:48)
[2021-11-07] MEDS: BENAZEPRIL 5MG TAB PO SCH (08:56)
[2021-11-07] MEDS: ASPIRIN 81MG ENTERIC TABLET PO SCH (08:56)
[2021-11-07] MEDS: PANTOPRAZOLE 40MG TAB (PROTONIX) PO SCH (08:57)
[2021-11-07] MEDS: dexameTHASONE 20MG/5ML VIAL (J1100 PER 1MG) IV SCH (08:57)
[2021-11-07] MEDS: amLODIPine 5 MG TAB PO SCH (08:57)
[2021-11-07] MEDS: ENOXAPARIN 40MG/0.4ML SYRINGE (J1650 PER 10MG) SC SCH ×2 (08:57→21:02)
[2021-11-07] MEDS: allopurinoL 300 MG TAB PO SCH (08:57)
[2021-11-07] MEDS: SERTRALINE HCL 25 MG TABLET PO SCH (08:57)
[2021-11-07] MEDS: LEVEMIR (INSULIN DETEMIR) 1 UNITS/0.01ML SC SCH ×2 (08:58→21:02)
[2021-11-07] MEDS: DICLOFENAC EPOLAMINE 1.3 % PATCH TOP SCH ×2 (12:38→23:49)
[2021-11-07 14:00] VITALS: BP 133/60
[2021-11-07 20:00] VITALS: BP 153/72
[2021-11-07 22:00] VITALS: O2SAT 91
[2021-11-07] MEDS: BENZONATATE 100MG CAPSULE PO PRN (23:48)
[2021-11-07] MEDS: ACETAMINOPHEN TAB 650MG DOSE (2X325MG) PO PRN (23:49)
[2021-11-08 04:00] VITALS: BP 139/66
[2021-11-08 06:38] LABS: HEMATOCRIT 41.2 % (42.0-52.0); HEMOGLOBIN 13.5 g/dl (13.5-17.5); MEAN CORPUSCULAR HEMOGLOBIN 29.7 pg (27.0-33.0); MEAN CORPUSCULAR HGB CONC 32.8 g/dl (32.0-36.5); MEAN CORPUSCULAR VOLUME 90.7 fl (80.0-96.0); PLATELET COUNT, AUTOMATED 142 10^3/uL (150-450); RED BLOOD COUNT 4.54 10^6/uL (4.30-6.10); WHITE BLOOD COUNT 9.5 10^3/uL (4.0-10.0)
[2021-11-08 07:00] LABS: BLOOD UREA NITROGEN 15 MG/DL (7-18); CALCIUM LEVEL 8.7 MG/DL (8.5-10.1); CARBON DIOXIDE LEVEL 31 MEQ/L (21-32); CHLORIDE LEVEL 102 MEQ/L (98-107); CREATININE FOR GFR 0.85 MG/DL (0.70-1.30); GLOMERULAR FILTRATION RATE > 60.0 (>56); GLUCOSE, FASTING 88 MG/DL (70-100); SODIUM LEVEL 140 MEQ/L (136-145)
[2021-11-08] MEDS: ALBUTEROL 90 MCG/ACT 8GM HFA INHALER INH SCH ×2 (07:48→11:14)
[2021-11-08] MEDS ORDERED: VENTAER INH (08:03)
[2021-11-08] MEDS ORDERED: ASPI-551 PO (08:03)
[2021-11-08] MEDS ORDERED: BENZ-18 PO (08:03)
[2021-11-08] MEDS ORDERED: PANT40TA29 PO (08:03)
[2021-11-08] MEDS ORDERED: SERT25TA21 PO (08:03)
[2021-11-08] MEDS: ENOXAPARIN 40MG/0.4ML SYRINGE (J1650 PER 10MG) SC SCH (08:48)
[2021-11-08] MEDS: LEVEMIR (INSULIN DETEMIR) 1 UNITS/0.01ML SC SCH (08:49)
[2021-11-08] MEDS: HumaLOG INSULIN (NovoLOG) PER UNIT SC SCH ×2 (08:50→13:08)
[2021-11-08] MEDS: dexameTHASONE 20MG/5ML VIAL (J1100 PER 1MG) IV SCH (08:51)
[2021-11-08] MEDS: SERTRALINE HCL 25 MG TABLET PO SCH (08:52)
[2021-11-08] MEDS: BENAZEPRIL 5MG TAB PO SCH (08:52)
[2021-11-08] MEDS: allopurinoL 300 MG TAB PO SCH (08:52)
[2021-11-08] MEDS: ASPIRIN 81MG ENTERIC TABLET PO SCH (08:52)
[2021-11-08] MEDS: PANTOPRAZOLE 40MG TAB (PROTONIX) PO SCH (08:52)
[2021-11-08 08:54] VITALS: BP 139/66
[2021-11-08] MEDS: amLODIPine 5 MG TAB PO SCH (08:54)
[2021-11-08 09:18] LABS: HEMOGLOBIN A1c 7.6 %
[2021-11-08] MEDS: DICLOFENAC EPOLAMINE 1.3 % PATCH TOP SCH (13:09)
[2021-11-08 14:00] VITALS: BP 134/71
== END 2021-11-08 15:40 | disposition home health service (06) | DRG 137 ==
LOC: M 4MAIN 17:27 → M ICU 10-15 01:40 → M 4MAIN 11-02 16:54
PROVIDERS: ADMIT Internal Medicine; ATTEND Internal Medicine
PROC: XW033E5 Introduction of Remdesivir Anti-infective into Peripheral Vein, Percutaneous Approach, New Technology Group 5 (ICD-10-PCS; principal; 2021-10-14)
PROC: 3E0333Z Introduction of Anti-inflammatory into Peripheral Vein, Percutaneous Approach (ICD-10-PCS; 2021-10-14)
DX: U07.1 COVID-19 (principal); J96.01 Acute respiratory failure with hypoxia; J12.82 Pneumonia due to coronavirus disease 2019; N17.9 Acute kidney failure, unspecified; E66.2 Morbid (severe) obesity with alveolar hypoventilation; J45.901 Unspecified asthma with (acute) exacerbation; Z68.43 Body mass index [BMI] 50.0-59.9, adult; I11.0 Hypertensive heart disease with heart failure; M54.50 Low back pain, unspecified; G89.29 Other chronic pain; M10.9 Gout, unspecified; M47.896 Other spondylosis, lumbar region; R73.9 Hyperglycemia, unspecified; D72.829 Elevated white blood cell count, unspecified; I27.20 Pulmonary hypertension, unspecified; I50.810 Right heart failure, unspecified; J98.11 Atelectasis

== ENCOUNTER → 2021-12-11 | Outpatient (CLI) | payer BC, OTHER ==
[~2021-12-11] MED LIST changes: +ALEV220T22 PO; +ALLO300T2 PO; +ASPI-551 PO; +BENZ-18 PO; -BUPIVACAINE HCL 0.25% 30ML VIAL As Ordered ONE; -ISOVUE-M 300 61% 15ML VIAL As Ordered ONE; -LIDOCAINE 1% SDV 30ML VIAL As Ordered ONE; +LOSA25TA13 PO; +LOTR5CAP2 PO; +PANT40TA29 PO; +SERT25TA21 PO; -TRIAMCINOLONE ACETONIDE SUSP 40 MG/ML VIAL (J3301) As Ordered ONE; +VENTAER INH; +VITA100T59 PO
== END ==
LOC: M PAIN 10:45
PROVIDERS: ATTEND Anesthesiology
DX: M47.816 Spondylosis without myelopathy or radiculopathy, lumbar region (principal); G89.29 Other chronic pain; G47.30 Sleep apnea, unspecified; E66.01 Morbid (severe) obesity due to excess calories; Z68.43 Body mass index [BMI] 50.0-59.9, adult; Z79.899 Other long term (current) drug therapy

== ENCOUNTER → 2023-09-08 | Outpatient (CLI) | payer BC, OTHER | LOC: M PLAIMG 15:51 | PROVIDERS: ATTEND Internal Medicine Pulmonary Disease | DX: J93.11 Primary spontaneous pneumothorax (principal); R91.8 Other nonspecific abnormal finding of lung field ==